=== PATIENT | male | born 1985 | race Caucasian/White ===

== ENCOUNTER 2018-08-17 09:07 | Emergency (ER) | payer SELFPAY ==
--- NOTE | 2018-08-17 09:19 | W.ED.GENAD ---
Discharge Plan Disposition Patient Disposition: HOME Condition: Stable Discharge Details Chief Complaint: FlankPain Clinical Impression: UTI (urinary tract infection), Acute pyelonephritis Primary Care Provider: None,None ED Provider: Chiara Larry Home Meds and New Rx's Prescriptions: New cephalexin [Keflex] 500 mg capsule 500 mg PO QID Qty: 28 RF: 0 doxycycline hyclate 100 mg capsule 100 mg PO BID Qty: 20 RF: 0 ondansetron 4 mg tablet,disintegrating 4 mg PO TID PRN (Reason: nausea and vomiting) 0 Days Qty: 10 RF: 0 No Action ibuprofen 800 MG tablet 800 mg PO PRN RF: 0 Discharge Instructions Instructions: Urinary Tract Infection in Men (ED) Additional Instructions: Encourage hydration. Tylenol and/or ibuprofen as needed for discomfort. Please take doxycycline and Keflex as prescribed. Even if symptoms improve, please see the entire course. Zofran is prescribed to help with nausea and vomiting. You need to have follow-up with a primary care provider for recheck in the next 48-72 hours. [facility] will call you. If you do not hear from them by tomorrow morning please call [phone]. If you develop fever/chills, increased pain, inability to stay hydrated or other new/worsening symptoms please seek care urgently once again. Referrals: David Pizano [ [facility] STAFF PHYSICIAN] - Discharge Data Discharge Date/Time-TO BE ENTERED AT DEPARTURE: 08/17/18 12:52 Medical Decision Making Patient is a 33-year-old male presenting today with chief complaint of nausea, vomiting and diarrhea times 1 week. States he has had minimal p.o. intake secondary to nausea and vomiting. Reports that initially he was having intermittent dysurea with bilateral flank pain. Pain is now more diffuse about the abdomen, worse in the LLQ. States that the diarrhea has since subsided. States that he has noted a white filmy penile discharge intermittently. denies any new sexual contacts. No known exposures to STI. Has had minimal PO intake secondary to his nausea and vomiting. Denies fevers but states that, particualrly when nauseated, has felt warm. No previous abdominal surgeries. Otherwise healthy, family history of DM. VS WNL. On exam, he appears dehydrated. Endorses discomfort with palpation fairly diffusely, worse in the epigastric and LLQ. No peritoneal findings. Mild bilateral CVA tenderness on exam. Patient is a mild discomfort with palpation of the testicle cremasteric reflex is intact, no swelling or deformities noted. Patient does not have PCP. Plan to obtain labs, hydrate the patient, treat nausea. Will obtain CT of abdomen and pelvis as well as ultrasound of the scrotum. CT reviewed by radiologist: ABDOMEN AND PELVIS CT: The study was carried out with intravenous injection of 100 cc's of Omnipaque 350. Aside from small regions of dependent atelectasis. The lung bases are unremarkable. There is no evidence of a pleural effusion. The heart is not enlarged. The liver is intact. The gallbladder is normal. There are no gallstones or evidence of biliary dilatation. The pancreas, spleen, kidneys and adrenals appear unremarkable. There is no evidence of bowel obstruction. There is no evidence of an acute appendix. There is no evidence of diverticulosis or diverticulitis and no localized bowel abnormality is apparent. The bladder is suboptimally distended and there is some question regarding bladder wall thickening. The possibility of cystitis not entirely excluded. The reproductive organs as visualized are unremarkable. There is no evidence of free air or free fluid in the intraperitoneal space. There is no evidence of an aortic aneurysm. The bony structures are unremarkable. SUMMARY: Normal with contrast enhanced CT examination of the abdomen and pelvis. Scrotal ultrasound reviewed by the gear technician with no acute abnormalities noted. Ultrasound reviewed by radiologist: TESTICULAR ULTRASOUND: The right testicle measures 3.9 x 2.0 x 3.6 cm and is acoustically homogeneous. There is no evidence of a cyst, mass or torsion. The right epididymis measures 0.8 x 1.2 x 0.9 cm and is unremarkable. The left testicle measures 3.9 x 2.2 x 3.8 cm and is acoustically homogeneous with no evidence of a cyst or mass. The left epididymis measures 1 x 0.8 x 0.8 cm. SUMMARY: Normal testicular ultrasound. Labs significant for potassium 3.3, will replenish this orally. Urinalysis also suggestive of urinary tract infection. Again, the patient denies any STD exposure. He denies any anal sex. He reports that he has been in a monogamous relationship since his last STD testing. Discussed these findings with the patient. We discussed his history once again the patient is now advising that the nausea and vomiting only began yesterday. He is tolerating p.o. hydration at this time. I am concerned this is a result of his worsening urinary tract infection. Discussed the case with Dr. De La Garza. We discussed antibiotic choice and have decided give the patient 1 g of Rocephin followed by 10-day course of doxycycline and a course of Keflex. Patient does not have a primary care but I would like him to have prompt follow-up. I have asked her home care music therapist to help establish primary care and follow-up as soon as possible. He was given strict return precautions. I advised the use of probiotics. All of his questions and concerns were addressed he is in agreement this plan. Patient was prescribed Zofran to help with nausea and vomiting. HPI General Mode of arrival: ambulatory. Date/Time Provider Initiated Documentation: 08/17/18 09:12. Limitations to Documentation: no limitations. Information obtained by: patient. History of Present Illness 33 year old M presents to the emergency department with the chief complaint of N/V/D, described as moderate, with intensity rated at 5. Quality is described as aching, and is localized to the abdomen (diffuse discomfort, worse in the LLQ, pain improving). Patient reports no radiation. Patient started experiencing this day(s) (7) and it has been intermittent. No relieving factors improve symptom(s), Eating worsens symptoms . Patient notes fever/chills (endorses feeling warm, no known fevers), loss of appetite, nausea/vomiting and weakness (endorses fatigue, states abdominal upset has made difficult to sleep); denies chest pain, cough, diaphoresis, headaches, rash and shortness of breath. Patient did receive the following treatments prior to arrival, none Related Data Home Medications Medication Instructions Recorded Confirmed ibuprofen 800 mg PO PRN 08/27/13 08/17/18 cephalexin [Keflex] 500 mg PO QID #28 cap 08/17/18 doxycycline hyclate 100 mg PO BID #20 cap 08/17/18 ondansetron 4 mg PO TID PRN 0 Days #10 tab 08/17/18 Previous Rx's Medication Instructions Recorded cephalexin [Keflex] 500 mg PO QID #28 cap 08/17/18 doxycycline hyclate 100 mg PO BID #20 cap 08/17/18 ondansetron 4 mg PO TID PRN 0 Days #10 tab 08/17/18 Allergies Allergy/AdvReac Type Severity Reaction Status Date / Time No Known Allergies Allergy Unverified 08/17/18 10:08 Review of Systems Constitutional Reports as per HPI, Denies chills, Reports fatigue, Denies fever(s) and Denies headache(s) ENT Denies headache(s) Cardiovascular Reports as per HPI, Denies chest pain and Denies dyspnea Respiratory Reports as per HPI, Denies cough and Denies dyspnea Gastrointestinal Reports as per HPI, Reports abdominal pain, Denies melena, Reports change in bowel habits (states initially had diarrhea, this has since improved), Denies cramping, Denies heartburn, Denies fecal incontinence, Reports nausea, Reports vomiting and Denies hematemesis Genitourinary Reports genital pain, Reports dysuria, Reports flank pain, Reports penile discharge, Denies scrotal swelling, Denies testicular mass, Reports testicular pain, Reports urinary frequency, Denies urinary incontinence and Denies urinary urgency Musculoskeletal Reports as per HPI and Denies back pain Integumentary/Breasts Reports as per HPI and Denies rash Neurologic Reports as per HPI and Denies headache(s) Endocrine Reports fatigue and Denies polydipsia [facility] Social History Smoking/Tobacco Use Status: Current every day Drug use: Never Do you feel safe at home: Yes Do you feel safe in your relationship?: Yes Exam Const General: cooperative, healthy appearing, comfortable, no acute distress, well developed and No well hydrated Nutritional Appearance: average body habitus and well nourished Orientation: alert and awake [facility] Head: normal to inspection Mouth: mucous membranes dry Resp Effort & Inspection: normal respiratory effort, able to speak in complete sentences and no respiratory distress Auscultation: clear to auscultation bilaterally, no rales, no rhonchi and no wheezes Cardio Rate: regular rate Rhythm: regular rhythm Heart Sounds: S1 normal and S2 normal GI Inspection: normal to inspection, no abdominal wall ecchymosis, no edema and non-distended Palpation: soft, no hepatosplenomegaly, no aortic enlargement, not firm, no guarding, not rigid and tender (diffusely tender, no peritoneal findings. Worse in epigastric and LLQ) Percussion: normal to percussion Auscultation: normal bowel sounds Male General Exam: Yes normal external exam, No ecchymosis, No edema, No erythema, No hernia, No inguinal lymphadenopathy and No lacerations Penis: normal penis Meatus: meatus normal and no meatla discharge Scrotum: scrotum normal Testes: normal Back/Spine/Pelvis Back: CVA tenderness (bilateral, mild) Skin General skin exam: no rashes or lesions noted Trauma: no lacerations or abrasions Neuro General: alert and awake Cognition: normal cognition Speech: speech normal Gait: normal gait Psych Appearance: grossly normal and well kempt Mental Status: mental status grossly normal Speech and Movement: speech and movement normal
--- NOTE | 2018-08-17 09:29 | DI.COMBO_ITS ---
SYMPTOMS/DIAGNOSIS: LLQ PAIN, NAUSEA, VOMITING ABDOMEN AND PELVIS CT: The study was carried out with intravenous injection of 100 cc's of Omnipaque 350. Aside from small regions of dependent atelectasis. The lung bases are unremarkable. There is no evidence of a pleural effusion. The heart is not enlarged. The liver is intact. The gallbladder is normal. There are no gallstones or evidence of biliary dilatation. The pancreas, spleen, kidneys and adrenals appear unremarkable. There is no evidence of bowel obstruction. There is no evidence of an acute appendix. There is no evidence of diverticulosis or diverticulitis and no localized bowel abnormality is apparent. The bladder is suboptimally distended and there is some question regarding bladder wall thickening. The possibility of cystitis not entirely excluded. The reproductive organs as visualized are unremarkable. There is no evidence of free air or free fluid in the intraperitoneal space. There is no evidence of an aortic aneurysm. The bony structures are unremarkable. SUMMARY: Normal with contrast enhanced CT examination of the abdomen and pelvis.
[2018-08-17 09:48] LABS: Abs Immature Grans 0.04 k/cumm (0.0-0.09); Absolute Basophil Count 0.03 k/cumm (0.0-0.2); Absolute Eosinophil Count 0.05 k/cumm (0.0-0.7); Absolute Monocyte Count 0.71 k/cumm (0.11-0.7); Absolute Neutrophil Count 8.56 k/cumm (1.2-6.7); Basophils % 0.3; Eosinophils % 0.4; HCT 41.4 % (40.0-50.0); HGB 14.5 g/dL (13.5-17.5); Immature Grans % 0.4; Mean Corpuscular Hemoglobin 30.1 pg (27.0-33.0); Mean Corpuscular Volume 85.9 fL (80-95); Mean Platelet Volume 10.7 fL (8.0-11.0); Monocytes % 6.3; Neutrophils % 75.6; Platelet Count 316 x1000/uL (130-400); RBC 4.82 m/cumm (4.50-6.00); RBC Distribution Width 12.3 % (11.8-14.1); White Blood Cell Count 11.32 k/cumm (4.4-10.8)
[2018-08-17] MEDS: Normal Saline 1,000 ML 1000 ML IV (09:50)
[2018-08-17 09:51] LABS: Absolute Lymphocyte Count 1.92 k/cumm (1.2-3.4)
[2018-08-17 10:00] LABS: ALT 26 U/L (12-78); AST 13 U/L (15-37); Albumin 4.3 g/dL (3.4-5.0); Alkaline Phosphatase 77 U/L (46-116); Anion Gap 12.3 mmol/L (3-11); BUN 10 mg/dL (7-18); Bilirubin, Total 0.8 mg/dL (0.2-1.0); CO2 26.7 mmol/L (21.0-32.0); CREATININE 0.96 mg/dL (0.70-1.30); Calcium 9.4 mg/dL (8.5-10.1); Chloride 100 mmol/L (98-107); Glucose 125 mg/dL (70-100); Potassium 3.3 mmol/L (3.5-5.1); Sodium 139 mmol/L (136-145); Total Protein 7.7 g/dL (6.4-8.2)
[2018-08-17] MEDS: Ondansetron 4 MG/2 ML VIAL IVP (10:00)
[2018-08-17 10:03] VITALS: BP 120/89; PULSE 61; RESP 12; TEMP 37.1; O2SAT 100
[2018-08-17 10:09] LABS: Lipase 147 U/L (73-393); Magnesium 1.8 mg/dL (1.8-2.4)
[2018-08-17 10:11] LABS: Troponin I < 0.02 ng/mL (0.00-0.06)
[2018-08-17] MEDS: Lactated Ringers 1,000 ML 1000 ML IV (10:34)
[2018-08-17 10:44] LABS: Bilirubin Negative (Negative); Blood Negative (Negative); Clarity Clear; Glucose Negative (Negative); Ketones Negative (Negative); Leukocyte Esterase Trace (Negative); Nitrite Negative (Negative); Specific Gravity 1.015 (1.005-1.025); Urobilinogen 0.2 EU/dL (Up TO 0.2)
[2018-08-17 10:57] LABS: Bacteria Few HPF (Negative); C & S Indicated? Yes; Casts Negative LPF (Negative); Crystals Negative HPF (Negative); Epithelial Cells Rare HPF (Negative); Mucus Negative (Negative); Other Cells Few Renal (Negative); RBC Negative (0-2); WBC >50 HPF (0-5)
[2018-08-17] MEDS: Omnipaque 350 MG/ML 100 ML BTL IV (11:05)
[2018-08-17] MEDS: Potassium Chloride 20 MEQ TABCR PO (11:09)
--- NOTE | 2018-08-17 11:34 | DI.US_ITS ---
SYMPTOMS/DIAGNOSIS: SCROTAL PAIN TESTICULAR ULTRASOUND: The right testicle measures 3.9 x 2.0 x 3.6 cm and is acoustically homogeneous. There is no evidence of a cyst, mass or torsion. The right epididymis measures 0.8 x 1.2 x 0.9 cm and is unremarkable. The left testicle measures 3.9 x 2.2 x 3.8 cm and is acoustically homogeneous with no evidence of a cyst or mass. The left epididymis measures 1 x 0.8 x 0.8 cm. SUMMARY: Normal testicular ultrasound.
[2018-08-17] MEDS: Normal Saline Flush 10 ML SYR IVP (12:20)
[2018-08-17] MEDS: Doxycycline Hyclate 100 MG CAP PO (12:21)
[2018-08-17] MEDS: cefTRIAXone 1 GM/50 ML BAG IVPB (12:21)
--- NOTE | 2018-08-17 13:04 | PDOC.ERCMPRO ---
Care Management Progress Note 08/17-Chiara SARABIA requested assistance with PCP (does not have a PCP, Dr. Pizano alterations expert) f/u appt for pyelonephritis on Wednesday or Wednesday. Called [facility] and spoke with Natasha,Chronic Substation Operator Apprentice. Natasha has scheduled Bala for Wednesday, 08/22 at 1:[address] Franco. This CM called Bala as he had already been discharged from the emergency department. Bala states he can make the appt on Wednesday.
--- NOTE | 2018-08-17 13:07 | CMPROGNOTE_ITS ---
Care Management Progress Note 08/17-Chiara SARABIA requested assistance with PCP (does not have a PCP, Dr. Pizano conveyor line battery charger) f/u appt for pyelonephritis on Wednesday or Wednesday. Called [facility] and spoke with Natasha,Chronic Specialist Field Engineer. Natasha has scheduled Bala for Wednesday, 08/22 at 1:[address] Franco. This CM called Bala as he had already been discharged from the emergency department. Bala states he can make the appt on Wednesday.
[2018-08-18 15:04] LABS: Chlamydia Result Negative; Specimen Description URINE
[2018-08-18 15:59] LABS: GC Result Positive
== END 2018-08-17 12:52 | disposition home or self-care (01) ==
PROVIDERS: Emergency Provider Physician Assistant
DX: N39.0 Urinary tract infection, site not specified (principal); N10 Acute pyelonephritis
CPT/HCPCS: 36415; 80053; 83690; 87491; 87591; 96361; 96365; 96375; 99285; 74177; 76870; 81003; 81015; 83735; 84484; 85025; 87086; 99284; J0696; J2405; J3490

== ENCOUNTER 2021-10-21 16:10 | Emergency (ER) | payer MEDICAID, SELFPAY ==
[2021-10-21 16:21] VITALS: BP 135/98; PULSE 81; RESP 18; TEMP 37.9; O2SAT 98
--- NOTE | 2021-10-21 16:30 | DI.RAD_ITS ---
Exam(s) XR FOOT RT COMPLETE EXAM: XR FOOT RT COMPLETE CLINICAL HISTORY: injury to foot -base of 5th metatarsal. TECHNIQUE: 2D digital imaging was performed. Three views. COMPARISON: CR RIGHT FOOT COMPLETE from 03/09/2017 FINDINGS: BONES: No acute fracture is present. No bony destructive lesion is seen. JOINTS: No dislocation present. Degenerative changes with spurring at the navicular 1st cuneiform cristy int. Mild degenerative changes 1st MTP joint. SOFT TISSUE: Normal. IMPRESSION: No acute abnormality. DATA REPOSITORY: RADIATION DOSE DELIVERED:
--- NOTE | 2021-10-21 17:49 | ED.GENADUL_ITS ---
Discharge Plan Disposition Patient Disposition: HOME Condition: Stable Discharge Details Clinical Impression: Acute foot pain Primary Care Provider: None,None ED Provider: Hector Moon Home Meds and New Rx's Prescriptions: No Action ibuprofen 800 MG tablet 800 mg PO PRN cephalexin [Keflex] 500 mg capsule 500 mg PO QID Qty: 28 0RF doxycycline hyclate 100 mg capsule 100 mg PO BID Qty: 20 0RF Discharge Instructions Instructions: Foot Sprain (ED) Additional Instructions: It is recommended that you wear the walking boot for the next 1 to 2 weeks and if continued to have pain wear this until you see orthopedics. You may take [id number] ibuprofen or acetaminophen as needed for discomfort, apply ice to help with swelling, and keep foot elevated. If you have any new or significant worsening of symptoms feel free to return to the emergency department for evaluation otherwise follow-up with orthopedist as discussed. Referrals: [facility] [Provider Group] Discharge Data Discharge Date/Time-TO BE ENTERED AT DEPARTURE: 10/21/21 17:58 Medical Decision Making Patient presenting to the emergency department for chief complaint of fall off of the deck landing on the lateral aspect of the right foot. Patient complaining of pain to the base of the fifth metatarsal otherwise no other injury or trauma. Physical exam does show pinpoint tenderness to base of fifth metatarsal otherwise foot and ankle and lower leg are unremarkable for other signs of trauma or injury. We will plan on performing radiological imaging to evaluate for Nicholson or pseudo Nicholson fracture. Patient stated no need for pain medication at this time. Review of radiological imaging and radiologist interpretation shows no acute fracture or dislocation. Given location of discomfort will place patient in a short walking boot to help with pain control and have patient follow-up with orthopedic office in the next 1 to 2 weeks for reassessment mainly due to pinpoint location of discomfort. After discussion of diagnosis and plan of care patient has no further needs, questions, or concerns and states clear understanding to return to the emergency department for any worsening symptoms. This documentation was generated using [employer] system, please disregard any oddities of phrase or misspellings. Imaging Data Radiologic Study: Imaging: X-Ray Radiologist's impression: No acute fracture or dislocation HPI General Date/Time Provider Initiated Documentation: 10/21/21 16:30 . Limitations to Documentation: no limitations . Information obtained by: patient and RN notes reviewed . History of Present Illness 36 year old M presents to the emergency department with the chief comp laint of right ankle/foot injury, described as moderate, with intensity rated at 6. Quality is described as aching, and is localized to the right and lower extremity. Patient reports no radiation. Patient started experiencing this hour(s) (1) and it has been constant. No relieving factors improve symptom(s), Movement worsens symptoms . Patient notes no other symptoms.. Patient did receive the following treatments prior to arrival, none Related Data Home Medications Medication Instructions Recorded Confirmed ibuprofen 800 mg tablet 800 mg PO PRN 08/27/13 08/22/18 cephalexin 500 mg capsule (Keflex) 500 mg PO QID #28 caps 08/17/18 08/22/18 doxycycline hyclate 100 mg capsule 100 mg PO BID #20 caps 08/17/18 08/22/18 Previous Rx's Medication Instructions Recorded cephalexin 500 mg capsule (Keflex) 500 mg PO QID #28 caps 08/17/18 doxycycline hyclate 100 mg capsule 100 mg PO BID #20 caps 08/17/18 Allergies Allergy/AdvReac Type Severity Reaction Status Date / Time No Known Allergies Allergy Unverified 08/22/18 13:17 General Stated Complaint: Orthopedic MANSI: 4 Review of Systems Narrative: 6 systems reviewed and unremarkable except what is marked below and noted in HPI Musculoskeletal Musculoskeletal: Reports as per HPI, Denies deformity, Denies numbness and Denies tingling Integumentary/Breasts Skin/Breast: Denies wounds Neurologic Neurologic: Denies numbness and Denies tingling PFSH All Active Problems (Updated 10/21/21 @ 17:55 by Hector Moon NP) Acute foot pain (Acute) Social History Smoking/Tobacco Use Status: Current every day Tobacco Type: cigarettes Smoking risk assessment performed?: Yes Alcohol Intake: current Alcohol Intake frequency: 3 or more drinks per day Alcohol type: beer Drug use: Never Substance use type: does not use Do you feel safe at home: Yes Do you feel safe in your relationship?: Yes Exam Const General: cooperative, no acute distress and not ill appearing Orientation: alert, awake and oriented x3 Resp Effort & Inspection: normal respiratory effort, able to speak in complete sentences and no respiratory distress Cardio Rate: regular rate Rhythm: regular rhythm Pulses: dorsalis pedis present Skin General skin exam: no rashes or lesions noted Neuro General: patient alert, patient awake, patient oriented x3, moves all extremities and no focal motor deficits Sensory Exam: no sensory deficits noted Extrem General: full ROM, capillary refill normal and normal exam except as noted Right lower extremity: ankle Details: normal to inspection and normal ROM; no tenderness and foot Details: normal capillary refill, tenderness Location: of the base of the 5th metatarsal, toes with normal ROM, ecchymosis dorsal lateral proximal Details: single, vascular exam Details: dorsalis pedis pulse present and normal capillary refill and tendon exam Details: active flexion normal and active extension normal; no abrasion and no laceration Course Vital Signs Vital signs: Vital Signs Temperature 37.9 C H 10/21/21 16:21 Pulse 81 10/21/21 16:21 Respiratory Rate 18 10/21/21 16:21 Blood Pressure 135/98 H 10/21/21 16:21 Pulse Oximetry 98 10/21/21 16:21 Temperature 37.9 C H 10/21/21 16:21 Temperature Source Tympanic 10/21/21 16:21 Pulse 81 10/21/21 16:21 Respiratory Rate 18 10/21/21 16:21 Respiratory Effort 10/21/21 16:24 Blood Pressure 135/98 H 10/21/21 16:21 Blood Pressure Position Supine 10/21/21 16:21 Pulse Oximetry 98 10/21/21 16:21 Oxygen Delivery Method Room Air 10/21/21 16:21 Oxygen Flow Rate 0 10/21/21 16:21 Pain Level 6 10/21/21 16:21
== END 2021-10-21 17:58 | disposition home or self-care (01) ==
PROVIDERS: Emergency Provider Nurse Practitioner Family
DX: M79.671 Pain in right foot (principal); W17.89XA Other fall from one level to another, initial encounter
CPT/HCPCS: 99283; 73630

== ENCOUNTER 2022-09-30 11:26 | Emergency (ER) | payer MEDICAID, SELFPAY ==
[2022-09-30 11:51] VITALS: PULSE 89; RESP 18; TEMP 36.7; O2SAT 99
[2022-09-30 11:53] VITALS: BP 110/90
--- NOTE | 2022-09-30 13:11 | W.ED.GENAD ---
Discharge Plan Disposition Patient Disposition: Home Condition: Stable Discharge Details Clinical Impression: Sprain of right shoulder Primary Care Provider: None,None ED Provider: Ariane Bustillo Home Meds and New Rx's Prescriptions: No Action ibuprofen 800 MG tablet 800 mg PO PRN cephalexin [Keflex] 500 mg capsule 500 mg PO QID Qty: 28 0RF Patient Comments: not taking doxycycline hyclate 100 mg capsule 100 mg PO BID Qty: 20 0RF Patient Comments: not taking Discharge Instructions Instructions: Shoulder Sprain (ED) Additional Instructions: Please follow-up with orthopedics. No evidence of broken bones or dislocation on the x-rays. Please take Tylenol or Ibuprofen with food every 4-6 hours as needed for pain and swelling. Rest ice compression elevation. Stand Alone Forms: Work Release Referrals: Gunnar Watson MD [ [facility] STAFF PHYSICIAN] - 1 week Medical Decision Making 37-year-old male presents to the ER with chief complaint of right shoulder pain and popping. He reports feeling popping while raising his right shoulder. He is unable to lift it above 90 degrees. No obvious dislocation, distal CMS is intact. No other associated symptoms. X-ray right shoulder ordered. X-rays are within normal limits. Patient given work note and instructions on follow-up verbalized understanding. Instructed on RICE procedures taking Tylenol and ibuprofen. This text was generated using [employer] dictation system, please disregard any oddities of phrase or misspellings. HPI General Mode of arrival: ambulatory. Date/Time Provider Initiated Documentation: 09/30/22 12:17. Limitations to Documentation: no limitations. Information obtained by: patient, RN notes reviewed and old records reviewed. HPI Narrative: 37-year-old male presents to the ER with chief complaint of right shoulder pain and popping. He reports feeling popping while raising his right shoulder. He is unable to lift it above 90 degrees. No obvious dislocation, distal CMS is intact. No other associated symptoms. Related Data Home Medications Medication Instructions Recorded Confirmed ibuprofen 800 mg tablet 800 mg PO PRN 08/27/13 09/30/22 cephalexin 500 mg capsule (Keflex) 500 mg PO QID #28 caps 08/17/18 08/22/18 doxycycline hyclate 100 mg capsule 100 mg PO BID #20 caps 08/17/18 08/22/18 Previous Rx's Medication Instructions Recorded cephalexin 500 mg capsule (Keflex) 500 mg PO QID #28 caps 08/17/18 doxycycline hyclate 100 mg capsule 100 mg PO BID #20 caps 08/17/18 Allergies Allergy/AdvReac Type Severity Reaction Status Date / Time No Known Allergies Allergy Unverified 09/30/22 11:53 General Stated Complaint: Orthopedic MANSI: 4 Review of Systems Musculoskeletal Musculoskeletal: Reports as per HPI and Reports arthralgias PFSH All Active Problems (Updated 09/30/22 @ 14:00 by Ariane Bustillo NP) Sprain of right shoulder (Acute) Social History Smoking/Tobacco Use Status: Current every day Tobacco Type: cigarettes Smoking risk assessment performed?: Yes Alcohol Intake: current Alcohol Intake frequency: 3 or more drinks per day Alcohol type: beer Drug use: Never Substance use type: does not use Do you feel safe at home: Yes Do you feel safe in your relationship?: Yes Exam Narrative Exam Narrative: Constitutional: Alert and oriented x3. Appears stated age. Normal body habitus. Head: Normocephalic, no trauma. Eyes: Pupils PERRL, Red reflex noted, EOM's intact. Eyelids symmetrical without lesions, discharge, or swelling. Abdomen: Soft, non-distended, Normoactive bowel sounds all 4 quads. Musculoskeletal: Normal gait, 5/5 strength to all four extremities. Decreased range of motion to his right shoulder, unable to move past 90 degrees. Skin: No suspicious rashes or lesions. Capillary refill less than 2 sec. Neurologic: Cranial nerves II-XII intact. Alert and oriented x 3. Motor: No deficits noted. Sensory: Intact bilaterally all 4 extremities. Reflexes: DTR's intact bilaterally.. Course Vital Signs Vital signs: Vital Signs Temperature 36.7 C 09/30/22 11:51 Pulse 89 09/30/22 11:51 Respiratory Rate 18 09/30/22 11:51 Pulse Oximetry 99 09/30/22 11:51 Temperature 36.7 C 09/30/22 11:51 Temperature Source Tympanic 09/30/22 11:51 Pulse 89 09/30/22 11:51 Respiratory Rate 18 09/30/22 11:51 Respiratory Effort Normal, Non-Labored 09/30/22 11:52 Blood Pressure 110/90 09/30/22 11:53 Pulse Oximetry 99 09/30/22 11:51 Oxygen Delivery Method Room Air 09/30/22 11:51 Oxygen Flow Rate 0 09/30/22 11:51 PAWSS Have you Been Recently Intoxicated or Drunk Within the Last 30 days?: No Have you Ever Experienced Previous Episodes of Alcohol Withdrawal?: No Have you ever Experienced Withdrawal Seizures?: No Have you ever Experienced Delirium Tremens(DT)s?: No Have you ever undergone Alcohol Rehabilitation Treatment (i.e, inpt ot outpatient treatment programs)?: No Have you ever Experienced Blackouts?: No Have you ever Combined Alcohol with other Downers within the last 90 days?: No Have you ever Combined Alcohol with any other Substance of Abuse during the last 90 days?: No Positive Blood Alcohol level on Presentation? [PCS.BAL]: No Evidence of Increased Autonomic Activity (i.e. HR>120, tremor, sweating, agitation, nausea)?: No Result: 0
--- NOTE | 2022-09-30 13:43 | DI.RAD_ITS ---
Exam(s) XR SHOULDER RT COMPLETE 2+V EXAM: XR SHOULDER RT COMPLETE 2+V CLINICAL HISTORY: Shoulder pain. TECHNIQUE: 2D digital imaging was performed. Five views. COMPARISON: No exams were available for comparison FINDINGS: BONES: No acute fracture is present. No bony destructive lesion is seen. JOINTS: No dislocation present. SOFT TISSUE: Normal. IMPRESSION: Unremarkable radiographs of the right shoulder. DATA REPOSITORY: RADIATION DOSE DELIVERED:
[2022-09-30 14:06] VITALS: PULSE 78; RESP 18; O2SAT 94
== END 2022-09-30 14:07 | disposition home or self-care (01) ==
PROVIDERS: Emergency Provider Registered Nurse Emergency
DX: S43.401A Unspecified sprain of right shoulder joint, initial encounter (principal); X50.0XXA Overexertion from strenuous movement or load, initial encounter; Y99.0 Civilian activity done for income or pay
CPT/HCPCS: 99283; 73030

== ENCOUNTER 2022-12-31 02:04 | Inpatient (IN) | payer MEDICAID, SELFPAY ==
[2022-12-31] VITALS (15 sets, daily range): BP systolic 111–124; BP diastolic 71–96; PULSE 51–114; RESP 14–18; TEMP 36.3–37.4; O2SAT 97–100
--- NOTE | 2022-12-31 | DI.CT_ITS ---
Exam(s) CT UPPER EXTREMITY LT W EXAM: CT UPPER EXTREMITY LT W CLINICAL HISTORY: CT L hand - L hand cellulitis and abscess TECHNIQUE: Imaging Protocol: Axial computed tomography images with coronal and sagittal reformatted images were created and reviewed. CONTRAST MATERIAL: Intravenous: Omnipaque 350 Contrast volume:structured data in ml Contrast route:I V - COMPARISON: There are no plain films available time of this CT interpretation. FINDINGS: OSSEOUS: No evidence of fracture nor dislocation. No osseous lesions nor erosions. No evidence of o steomyelitis. SOFT TISSUES: There is subcutaneous edema both over the dorsal and palm are aspect of the medial hand . There is no radiopaque foreign body evident. There is no formed abscess. No obvious tenosynoviti s. IMPRESSION: Contain is soft tissue streaking but no distinct fluid collection to suggest the presence of an obvio us abscess. No evidence of osteomyelitis. RADIATION DOSE DELIVERED: 181.79mGy.cm Total DLP DATA REPOSITORY: All CT scans at this facility are submitted to the National Radiology Data Registry (NRDR) Dose Index Registry (DIR) with the [employer] (A[employer]). RADIATION OPTIMIZATION: All CT scans at this facility use at least one of these dose optimization te chniques: automated exposure control; mA and/or kV adjustment per patient size (includes targeted exa ms where dose is matched to clinical indication); or iterative reconstruction.
[2022-12-31 02:59] LABS: Lactate 1.1 mmol/L (0.6-1.4)
[2022-12-31] MEDS: ACETAMINOPHEN 1,000 MG/100 ML BTL 400 MG IVPB (03:12)
[2022-12-31] MEDS: Ketorolac 15 MG/ML VIAL IVP ×2 (03:13→22:48)
[2022-12-31] MEDS: Lactated Ringers 1,000 ML 1000 ML IV (03:13)
[2022-12-31 03:18] LABS: ALT 6 U/L (16-63); AST 13 U/L (15-37); Albumin 3.7 g/dL (3.4-5.0); Alkaline Phosphatase 73 U/L (46-116); Anion Gap 7.9 mmol/L (3-11); BUN 6 mg/dL (7-18); Bilirubin, Total 0.3 mg/dL (0.2-1.0); C-Reactive Protein 4.36 mg/dL (0.0-0.3); CO2 30.1 mmol/L (21.0-32.0); CREATININE 1.2 mg/dL (0.70-1.30); Calcium 9.5 mg/dL (8.5-10.1); Chloride 104 mmol/L (98-107); Estimated GFR 80.88 (mL/min/1.73m2); Glucose 78 mg/dL (74-106); Potassium 4.1 mmol/L (3.5-5.1); Sodium 142 mmol/L (136-145); Total Protein 7.4 g/dL (6.4-8.2)
[2022-12-31 03:21] LABS: Abs Immature Grans 0.09 10^3/uL (0.0-0.06); Absolute Eosinophil Count 0.19 10^3/uL (0.0-0.7); Absolute Lymphocyte Count 2.01 10^3/uL (1.2-3.4); Absolute Monocyte Count 1.07 10^3/uL (0.1-0.8); Absolute Neutrophil Count 12.76 10^3/uL (1.2-6.7); Basophils % 0.6; Eosinophils % 1.2; HCT 41.8 % (40.0-50.0); HGB 14.4 g/dL (13.5-17.5); Immature Grans % 0.6; Lymphocytes % 12.4; MCH 32.1 pg (27.0-33.0); MCHC 34.4 % (32.0-36.0); MCV 93 fL (80-95); MPV 10.2 fL (8.0-11.0); Monocytes % 6.6; Neutrophils % 78.6; Platelet Count 362 10^3/uL (130-400); RBC 4.49 10^6/uL (4.36-5.78); RDW 12.3 % (11.8-14.1); RDW-SD 42.7 fL; WBC 16.24 10^3/uL (4.4-10.8)
[2022-12-31 03:22] LABS: ESR 6 mm/hr (0-15)
--- NOTE | 2022-12-31 03:44 | ED.GENADUL_ITS ---
Discharge Plan Disposition Patient Disposition: Admit to [facility] Discharge Details Chief Complaint: Cellulitis Clinical Impression: Sepsis, Cellulitis Primary Care Provider: Unknown,Unknown ED Provider: Shanice Newberry Home Meds and New Rx's Prescriptions: No Action ibuprofen 800 MG tablet 800 mg PO PRN Medical Decision Making 37yo previously jessica male presenting with insect bite to left hand. Noted pain and redness at the base of his left 4th digit this afternoon which has been progressively worsening. Tachycardiac on arrival, normotensive, afebrile. Cellulits on hand with extending erythema in lymphatic pattern up the arm. Will treat empirically for MRSA with IV clindamycin. IVFB ordered, blood cultures sent. No pain with passive extension on exam, no significant swelling of digit, not concerned for flexor tenosynovitis or deep space infection at this time. Labs reviewed as below, elevated WBC to 16; SIRS +, will treat for sepsis, give 2nd L of IVF. CMP reassuring, lactic normal, CRP elevated. On reassessment vital signs improving, HR in 80's. Discussed with Dr. Rodriguez and accepted to medicine service, awaiting transfer to the floor. Lab Data Lab results reviewed: Yes I reviewed the patient's lab results. Labs: 12/31/22 02:56 Blood Blood Culture - Pending 12/31/22 02:47 Blood Blood Culture - Pending Laboratory Tests Range/Units 12/31/22 12/31/22 12/31/22 02:47 02:47 02:47 WBC (4.4-10.8) 10^3/uL RBC (4.36-5.78) 10^6/uL Hgb (13.5-17.5) g/dL Hct (40.0-50.0) % MCV (80-95) fL MCH (27.0-33.0) pg MCHC (32.0-36.0) % RDW (11.8-14.1) % Plt Count (130-400) 10^3/uL MPV (8.0-11.0) fL Immature Gran % Neutrophils % Lymphocytes % Monocytes % Eosinophils % Basophils % Nucleated RBC % (0.0-0.3) % Absolute Neutrophils (1.2-6.7) 10^3/uL Absolute Lymphocytes (1.2-3.4) 10^3/uL Absolute Monocytes (0.1-0.8) 10^3/uL Absolute Eosinophils (0.0-0.7) 10^3/uL Absolute Basophils (0.0-0.2) 10^3/uL ESR (0-15) mm/hr 6 VBG Lactate (0.6-1.4) mmol/L 1.1 Sodium (136-145) mmol/L 142 Potassium (3.5-5.1) mmol/L 4.1 Chloride (98-107) mmol/L 104 Carbon Dioxide (21.0-32.0) mmol/L 30.1 Anion Gap (3-11) mmol/L 7.9 BUN (7-18) mg/dL 6 L Creatinine (0.70-1.30) mg/dL 1.2 Est GFR (CKD-EPI 2020) (mL/min/1.73m2) 80.88 Glucose (74-106) mg/dL 78 Calcium (8.5-10.1) mg/dL 9.5 Magnesium (1.8-2.4) mg/dL 2.0 Total Bilirubin (0.2-1.0) mg/dL 0.3 AST (15-37) U/L 13 L ALT (16-63) U/L 6 L Alkaline Phosphatase (46-116) U/L 73 C-Reactive Protein (0.0-0.3) mg/dL 4.36 H Total Protein (6.4-8.2) g/dL 7.4 Albumin (3.4-5.0) g/dL 3.7 Range/Units 12/31/22 02:47 WBC (4.4-10.8) 10^3/uL 16.24 H RBC (4.36-5.78) 10^6/uL 4.49 Hgb (13.5-17.5) g/dL 14.4 Hct (40.0-50.0) % 41.8 MCV (80-95) fL 93 MCH (27.0-33.0) pg 32.1 MCHC (32.0-36.0) % 34.4 RDW (11.8-14.1) % 12.3 Plt Count (130-400) 10^3/uL 362 MPV (8.0-11.0) fL 10.2 Immature Gran % 0.6 Neutrophils % 78.6 Lymphocytes % 12.4 Monocytes % 6.6 Eosinophils % 1.2 Basophils % 0.6 Nucleated RBC % (0.0-0.3) % 0.0 Absolute Neutrophils (1.2-6.7) 10^3/uL 12.76 H Absolute Lymphocytes (1.2-3.4) 10^3/uL 2.01 Absolute Monocytes (0.1-0.8) 10^3/uL 1.07 H Absolute Eosinophils (0.0-0.7) 10^3/uL 0.19 Absolute Basophils (0.0-0.2) 10^3/uL 0.10 ESR (0-15) mm/hr VBG Lactate (0.6-1.4) mmol/L Sodium (136-145) mmol/L Potassium (3.5-5.1) mmol/L Chloride (98-107) mmol/L Carbon Dioxide (21.0-32.0) mmol/L Anion Gap (3-11) mmol/L BUN (7-18) mg/dL Creatinine (0.70-1.30) mg/dL Est GFR (CKD-EPI 2020) (mL/min/1.73m2) Glucose (74-106) mg/dL Calcium (8.5-10.1) mg/dL Magnesium (1.8-2.4) mg/dL Total Bilirubin (0.2-1.0) mg/dL AST (15-37) U/L ALT (16-63) U/L Alkaline Phosphatase (46-116) U/L C-Reactive Protein (0.0-0.3) mg/dL Total Protein (6.4-8.2) g/dL Albumin (3.4-5.0) g/dL HPI General Mode of arrival: ambulatory . Date/Time Provider Initiated Documentation: 12/31/22 02:32 . Limitations to Documentation: no limitations . Information obtained by: patient . HPI Narrative: 37yo previously jessica male presenting with insect bite to left hand. Noted pain and redness at the base of his left 4th digit this afternoon which has been progressively worsening. Pain is severe, worsening, worse with using his hand, no other aggravating factors, no alleviating factors. He is otherwise in his usual state of health with no fevers, chills, rash, nausea, vomiting, abdominal pain, or other concerns. Denies any hx of IV drug use. Related Data Home Medications Medication Instructions Recorded Confirmed ibuprofen 800 mg tablet 800 mg PO PRN 08/27/13 12/31/22 Allergies Allergy/AdvReac Type Severity Reaction Status Date / Time No Known Allergies Allergy Unverified 12/31/22 02:10 General Stated Complaint: Cellulitis MANSI: 3 Review of Systems Narrative: see HPI PFSH All Active Problems (Updated 12/31/22 @ 04:37 by Shanice Newberry MD) Sepsis (Acute) Cellulitis (Acute) Social History Smoking/Tobacco Use Status: Current every day Tobacco Type: cigarettes Smoking risk assessment performed?: Yes Alcohol Intake: current Alcohol Intake frequency: 3 or more drinks per day Alcohol type: beer Drug use: Never Substance use type: does not use Do you feel safe at home: Yes Do you feel safe in your relationship?: Yes Exam Narrative Exam Narrative: General: Alert, in no acute distress. Head: Normocephalic, atraumatic Neck: Trachea midline, Neck supple. ENT: MMM. Cardiac: Tachycardiac, no murmurs appreciated Resp: No respiratory distress. CTAB. Abd: Soft, non-distended, nontender : No suprapubic tenderness. Extremities: No deformities. No peripheral edema. Left hand lesion to base of 4th digit, no drainage, tender and erythematous with streaking up arm. Pain with active flexion. No pain with passive extension. Neurologic: GCS 15. Moves all extremities freely against gravity Course Vital Signs Vital signs: Vital Signs Temperature 37.4 C 12/31/22 02:08 Pulse 114 H 12/31/22 02:08 Respiratory Rate 18 12/31/22 02:08 Blood Pressure 124/96 H 12/31/22 02:08 Pulse Oximetry 100 12/31/22 02:08 Temperature 37.4 C 12/31/22 02:08 Temperature Source Temporal Artery Scan 12/31/22 02:08 Pulse 114 H 12/31/22 02:08 Respiratory Rate 18 12/31/22 02:08 Respiratory Effort Normal, Non-Labored 12/31/22 02:11 Blood Pressure 124/96 H 12/31/22 02:08 Blood Pressure Position Sitting 12/31/22 02:08 Pulse Oximetry 100 12/31/22 02:08 Oxygen Delivery Method Room Air 12/31/22 02:08 Oxygen Flow Rate 0 12/31/22 02:08 Lab/Test Results Lab/Test Results: 12/31/22 02:56 Blood Blood Culture - Pending 12/31/22 02:47 Blood Blood Culture - Pending Laboratory Tests Range/Units 12/31/22 12/31/22 12/31/22 02:47 02:47 02:47 WBC (4.4-10.8) 10^3/uL RBC (4.36-5.78) 10^6/uL Hgb (13.5-17.5) g/dL Hct (40.0-50.0) % MCV (80-95) fL MCH (27.0-33.0) pg MCHC (32.0-36.0) % RDW (11.8-14.1) % Plt Count (130-400) 10^3/uL MPV (8.0-11.0) fL Immature Gran % Neutrophils % Lymphocytes % Monocytes % Eosinophils % Basophils % Nucleated RBC % (0.0-0.3) % Absolute Neutrophils (1.2-6.7) 10^3/uL Absolute Lymphocytes (1.2-3.4) 10^3/uL Absolute Monocytes (0.1-0.8) 10^3/uL Absolute Eosinophils (0.0-0.7) 10^3/uL Absolute Basophils (0.0-0.2) 10^3/uL ESR (0-15) mm/hr 6 VBG Lactate (0.6-1.4) mmol/L 1.1 Sodium (136-145) mmol/L 142 Potassium (3.5-5.1) mmol/L 4.1 Chloride (98-107) mmol/L 104 Carbon Dioxide (21.0-32.0) mmol/L 30.1 Anion Gap (3-11) mmol/L 7.9 BUN (7-18) mg/dL 6 L Creatinine (0.70-1.30) mg/dL 1.2 Est GFR (CKD-EPI 2020) (mL/min/1.73m2) 80.88 Glucose (74-106) mg/dL 78 Calcium (8.5-10.1) mg/dL 9.5 Magnesium (1.8-2.4) mg/dL 2.0 Total Bilirubin (0.2-1.0) mg/dL 0.3 AST (15-37) U/L 13 L ALT (16-63) U/L 6 L Alkaline Phosphatase (46-116) U/L 73 C-Reactive Protein (0.0-0.3) mg/dL 4.36 H Total Protein (6.4-8.2) g/dL 7.4 Albumin (3.4-5.0) g/dL 3.7 Range/Units 12/31/22 02:47 WBC (4.4-10.8) 10^3/uL 16.24 H RBC (4.36-5.78) 10^6/uL 4.49 Hgb (13.5-17.5) g/dL 14.4 Hct (40.0-50.0) % 41.8 MCV (80-95) fL 93 MCH (27.0-33.0) pg 32.1 MCHC (32.0-36.0) % 34.4 RDW (11.8-14.1) % 12.3 Plt Count (130-400) 10^3/uL 362 MPV (8.0-11.0) fL 10.2 Immature Gran % 0.6 Neutrophils % 78.6 Lymphocytes % 12.4 Monocytes % 6.6 Eosinophils % 1.2 Basophils % 0.6 Nucleated RBC % (0.0-0.3) % 0.0 Absolute Neutrophils (1.2-6.7) 10^3/uL 12.76 H Absolute Lymphocytes (1.2-3.4) 10^3/uL 2.01 Absolute Monocytes (0.1-0.8) 10^3/uL 1.07 H Absolute Eosinophils (0.0-0.7) 10^3/uL 0.19 Absolute Basophils (0.0-0.2) 10^3/uL 0.10 ESR (0-15) mm/hr VBG Lactate (0.6-1.4) mmol/L Sodium (136-145) mmol/L Potassium (3.5-5.1) mmol/L Chloride (98-107) mmol/L Carbon Dioxide (21.0-32.0) mmol/L Anion Gap (3-11) mmol/L BUN (7-18) mg/dL Creatinine (0.70-1.30) mg/dL Est GFR (CKD-EPI 2020) (mL/min/1.73m2) Glucose (74-106) mg/dL Calcium (8.5-10.1) mg/dL Magnesium (1.8-2.4) mg/dL Total Bilirubin (0.2-1.0) mg/dL AST (15-37) U/L ALT (16-63) U/L Alkaline Phosphatase (46-116) U/L C-Reactive Protein (0.0-0.3) mg/dL Total Protein (6.4-8.2) g/dL Albumin (3.4-5.0) g/dL PAWSS Have you Been Recently Intoxicated or Drunk Within the Last 30 days?: No Have you Ever Experienced Previous Episodes of Alcohol Withdrawal?: No Have you ever Experienced Withdrawal Seizures?: No Have you ever Experienced Delirium Tremens(DT)s?: No Have you ever undergone Alcohol Rehabilitation Treatment (i.e, inpt ot outpatient treatment programs)?: No Have you ever Experienced Blackouts?: No Have you ever Combined Alcohol with other Downers within the last 90 days?: No Have you ever Combined Alcohol with any other Substance of Abuse during the last 90 days?: No Positive Blood Alcohol level on Presentation? [PCS.BAL]: No Evidence of Increased Autonomic Activity (i.e. HR>120, tremor, sweating, agitation, nausea)?: No Result: 0
[2022-12-31] MEDS: CLINDAMYCIN 600 MG/50 ML BAG 100 MG IVPB (03:59)
[2022-12-31] MEDS: Normal Saline 1,000 ML 1000 ML IV (03:59)
--- NOTE | 2022-12-31 05:36 | HPE_ITS ---
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 He is presently not working but has multiple lesions over his fingers which appear to be blisters mostly over the medial and lateral aspects of the finger. There is low suspicion for IV injection site infections but urine drug screen will be performed. Patient will be placed on IV clindamycin with observation because of the rapidity of onset of symptoms and elevated WBC, tachycardia with heart rate at 100 and source of infection meeting SIRS criteria. He is a full code. (2) SIRS (systemic inflammatory response syndrome): Start date: 12/31/22 Status: Acute Assessment and plan: Patient has soft criteria for SIRS syndrome and will be observed while treating with IV antibiotic therapy and observing SIRS syndrome and will be on observation while treating IV for progression of symptoms with acute cellulitis and rapidity of physical findings. (3) Alcohol abuse, daily use: Status: Chronic Assessment and plan: [facility] protocol for precaution. (4) Tobacco dependence: Status: Chronic Assessment and plan: Nicotine topical treatment while hospitalized. 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 He appears unkempt and states that he had a insect bite over his left hand in the region of the fourth finger MCP about 24 hours ago which became red and swollen and now has red streaks going up his arm. He came to the ED because of discomfort and the spreading of the redness. He does have other injuries over his hands and appears unkempt as if he is coming from work at the time I examined him early in the morning. He is withdrawn with his history and hesitant. I do not have access come directly if he had IV drug use but urine drug screen will be performed. He denies any rigors or chills. He has had no history of chronic medical problems and does not take any medications. He does have very poor dentition. After evaluation in the ED with his onset of symptoms rapidly progressing he was given IV hydration with IV clindamycin and will be observed with initial treatment of this problem. He has not had a trial of oral antibiotics but this was deferred because of the rapidity of the progression of symptoms and meeting SIRS criteria. The patient is a full code. Review of Systems Narrative: 13 point review of systems otherwise unrevealing or stable PFSH All Active Problems (Updated 12/31/22 @ 06:05 by Jaspal Rodriguez) SIRS (systemic inflammatory response syndrome) (Acute) Alcohol abuse, daily use (Chronic) Tobacco dependence (Chronic) Cellulitis (Acute) Social History Smoking/Tobacco Use Status: Current every day Tobacco Type: cigarettes Smoking risk assessment performed?: Yes Alcohol Intake: current Alcohol Intake frequency: 3 or more drinks per day Alcohol type: beer Drug use: Never Substance use type: does not use Housing: house Do you feel safe at home: Yes Do you feel safe in your relationship?: Yes Meds Allergies and Home Medications Allergies Allergy/AdvReac Type Severity Reaction Status Date / Time No Known Allergies Allergy Unverified 12/31/22 02:10 Home Medications Medication Instructions Recorded Confirmed Type ibuprofen 800 mg tablet 800 mg PO PRN 08/27/13 12/31/22 History Exam Narrative Exam Narrative: General: Patient appears unkempt dressed in dirty work closed though he states he has not been working recently. He is appropriate for age. Alert and oriented x3 and in no acute distress but flattened affect with minimal conversation. HEENT: Normocephalic, unkempt hair and case, coarsened facial features, eyes with pupils equal and react light specially, extraocular movement tact and sclera anicteric. Oropharynx with very poor dentition with many missing teeth and carious broken teeth and slight gingival swelling, oral mucosa is moist. Neck: Supple without JVD. Back: Normal posture without CVA tenderness. Lungs: Fair aeration with broad physical breath sounds diffusely with no focalizing rales or rhonchi. No increased expiratory phase or expiratory wheez e. Heart: Regular rate and rhythm with no murmurs gallops appreciated. Abdomen: Scaphoid contour, soft nontender to palpation with no palpable hepatosplenomegaly. Bowel sounds positive all quadrants. Genitalia/rectal: Exam deferred. Extremities: Without clubbing, cyanosis or pitting edema. Peripheral pulses intact. Hands have multiple injuries at variable stages of healing with a dry ulcer base over the right fourth finger and left thumb having a nodular healing lesion over the ulnar aspect of the proximal phalanx and the left fourth finger area dorsally over the MCP having a slightly purulent point with swelling but no active drainage erythema, and increased warmth to touch with a red streak going up his dorsal left forearm. There are no palpable or tender epitrochlear nodes. Skin: Unkempt, normal color otherwise, warm and dry. Lesions over left hand as described. Neuro: Cranial nerves II through XII grossly intact, no focalizing motor deficits. No tremor. Psych: Flattened affect with pauce conversation and poor eye contact. Mood appears depressed. No abnormal thought processes. Remote and recent memory grossly intact. Results Labs 12/31/22 02:47 12/31/22 02:47 Labs: Laboratory Results - last 24 hr 12/31/22 12/31/22 12/31/22 02:47 02:47 02:47 WBC RBC Hgb Hct MCV MCH MCHC RDW Plt Count MPV Immature Gran % Neutrophils % Lymphocytes % Monocytes % Eosinophils % Basophils % Nucleated RBC % Absolute Neutrophils Absolute Lymphocytes Absolute Monocytes Absolute Eosinophils Absolute Basophils ESR 6 VBG Lactate 1.1 Sodium 142 Potassium 4.1 Chloride 104 Carbon Dioxide 30.1 Anion Gap 7.9 BUN 6 L Creatinine 1.2 Est GFR (CKD-EPI 2020) 80.88 Glucose 78 Calcium 9.5 Magnesium 2.0 Total Bilirubin 0.3 AST 13 L ALT 6 L Alkaline Phosphatase 73 C-Reactive Protein 4.36 H Total Protein 7.4 Albumin 3.7 12/31/22 02:47 WBC 16.24 H RBC 4.49 Hgb 14.4 Hct 41.8 MCV 93 MCH 32.1 MCHC 34.4 RDW 12.3 Plt Count 362 MPV 10.2 Immature Gran % 0.6 Neutrophils % 78.6 Lymphocytes % 12.4 Monocytes % 6.6 Eosinophils % 1.2 Basophils % 0.6 Nucleated RBC % 0.0 Absolute Neutrophils 12.76 H Absolute Lymphocytes 2.01 Absolute Monocytes 1.07 H Absolute Eosinophils 0.19 Absolute Basophils 0.10 ESR VBG Lactate Sodium Potassium Chloride Carbon Dioxide Anion Gap BUN Creatinine Est GFR (CKD-EPI 2020) Glucose Calcium Magnesium Total Bilirubin AST ALT Alkaline Phosphatase C-Reactive Protein Total Protein Albumin Last Vital Signs Temp 37.4 C 12/31/22 02:08 Pulse 85 12/31/22 04:01 Resp 18 12/31/22 02:08 BP 121/77 12/31/22 04:01 Pulse Ox 100 12/31/22 04:20 PAWSS Have you Been Recently Intoxicated or Drunk Within the Last 30 days?: No Have you Ever Experienced Previous Episodes of Alcohol Withdrawal?: No Have you ever Experienced Withdrawal Seizures?: No Have you ever Experienced Delirium Tremens(DT)s?: No Have you ever undergone Alcohol Rehabilitation Treatment (i.e, inpt ot outpatient treatment programs)?: No Have you ever Experienced Blackouts?: No Have you ever Combined Alcohol with other Downers within the last 90 days?: No Have you ever Combined Alcohol with any other Substance of Abuse during the last 90 days?: No Positive Blood Alcohol level on Presentation? [PCS.BAL]: No Evidence of Increased Autonomic Activity (i.e. HR>120, tremor, sweating, agitation, nausea)?: No Result: 0 Time Spent Time spent with Patient: 55-74 minutes Time was spent: preparing to see the patient(eg.review tests), obtaining and/or reviewing separately otained hiistory, ordering medications,tests, procedures and indepentently interpreting results
[2022-12-31] MEDS: Normal Saline 1,000 ML 125 ML IV (07:33)
[2022-12-31 08:20] LABS: Lab Add On Test DONE
[2022-12-31] MEDS: PIPERACILLIN/TAZO 4.5 GM in Normal Saline 100 ML IVPB ×3 (08:40→20:29)
[2022-12-31] MEDS: Folic Acid 1 MG TAB PO (08:41)
[2022-12-31] MEDS: Thiamine 100 MG TAB PO (08:41)
[2022-12-31] MEDS: Multivitamin TAB 1 TAB PO (08:41)
[2022-12-31] MEDS: Enoxaparin 40 MG/0.4 ML SYR SC (08:41)
[2022-12-31 08:53] LABS: Procalcitonin < 0.1 ng/mL
[2022-12-31] MEDS: Omnipaque 350 MG/ML 100 ML BTL IJ (09:42)
[2022-12-31] MEDS: Normal Saline - Diluent 50 ML VIAL IV (09:43)
--- NOTE | 2022-12-31 10:16 | PDOC.CMIN ---
Date of service: 12/31/22 Time of Service: 10:16 Care Management Initial Assmt Initial Assessment REASON FOR HOSPITALIZATION:: Cellulitis with abscess left hand, SIRS PREVIOUS FUNCTIONAL STATUS/SOCIAL/FAMILY SUPPORTS:: Resides in [facility]. 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 Currently unemployed; reportedly a daily drinker of alcohol and smokes tobacco as well. CURRENT FUNCTIONAL STATUS:: Bala was sleeping soundly when CM entered his room, later in the day he provided Dr. Easley with verbal permission to speak with his parents; per her report they shared concerns over ongoing JOSE D issues; football coach consulted. CM to provide Motivational Interview; review resources per patient engagement. Red remains on CIWA protocol-currently being medically treated with Ativan. ADVANCE DIRECTIVES:: None on file. Has patient been provided with info about the portal/API?: Yes Did the patient sign up for the portal?: No CODE STATUS:: Full Code INSURANCE COVERAGE / FINANCIAL ISSUES:: Medicaid PRIMARY CARE PHYSICIAN:: None noted. POTENTIAL DISCHARGE NEEDS:: Attempt PCP attachment, JOSE D review, football coach consult. PATIENT/FAMILY EDUCATION NEEDS:: Review discharge instructions, discuss self care needs Ask Me Three. ANTICIPATED BARRIERS TO DISCHARGE:: CIWA protocol; ETOH withdrawal possible. Undetermined course of antibiotic treatment. TRANSPORTATION:: Private vehicle. PLAN:: Awaiting culture studies and treatment determinations to inform discharge planning, anticipate JOSE D discussion, football coach consult, PCP attachment and review of community based supports. Bala remains on CIWA at this time; tremors and diaphoresis noted at this time; scoring a 6; being treated with ativan. CM continues to follow. PFSH All Active Problems (Updated 12/31/22 @ 15:35 by Sindy Easley MD) Discharge planning issues (Acute) DVT prophylaxis (Acute) Leucocytosis (Acute) Polysubstance abuse (Acute) Cellulitis of left hand (Acute) SIRS (systemic inflammatory response syndrome) (Acute) Alcohol abuse, daily use (Chronic) Tobacco dependence (Chronic) Cellulitis (Acute) Social History Smoking/Tobacco Use Status: Current every day Tobacco Type: cigarettes Smoking risk assessment performed?: Yes Alcohol Intake: current Alcohol Intake frequency: 3 or more drinks per day Alcohol type: beer Drug use: Never Substance use type: does not use Housing: house Do you feel safe at home: Yes Do you feel safe in your relationship?: Yes
[2022-12-31] MEDS: VANCOMYCIN/WATER (PEG) 2 GM/400 ML BAG IV (10:24)
[2022-12-31] MEDS: LORazepam 1 MG TAB PO/SL ×2 (10:36→14:37)
--- NOTE | 2022-12-31 11:53 | OCONE_ITS ---
Date of service: 12/31/22 Time of Service: 11:53 Assessment and Plan Assessment and plan (1) Cellulitis of left hand: Status: Acute Assessment and plan: 37-year-old male, [id number], with left hand cellulitis. Consultation was requested. Patient presented to the ER last night stating that he developed a left hand infection over the past 1-2 days, assumed he was bitten by an insect but did not see an actual insect. He denies any trauma or striking an object. He does states that he had a blister on his left thumb that he drained himself on Wednesday, now only scabbing remains, no evidence of infection. He admits to occasional alcohol use but when asked in greater detail, admits to drinking approximately 3-4 beers daily. He denies having ever withdrawn from alcohol. He smokes almost 1 pack of cigarettes daily. He denies any drug use or history thereof. He gave permission for me to speak with his mother who was also in the exam room, she spoke to me in the hallway and states that he uses both heroin and fentanyl, has been struggling with this for a year, and even attempted 1 formal detox to which he signed himself out. She is not sure whether or not he partakes in IV drug use. In the ER it was found that he had leukocytosis as well as tachycardia, concern for sepsis. IV antibiotics administered and admitted to the hospitalist team. CT imaging was obtained and local soft tissue streaking identified but no fluid collection to suggest obvious abscess. No sara dence of osteomyelitis. Patient appears nontoxic, speaking in full sentences, no respiratory distress. He has scabbing over his right thumb, no evidence of infection. There is also scabbing over the fourth MCP joint with swelling, erythema, warmth, and tenderness which extends to the third and fifth MCP joint as well as proximally to the wrist. Mild induration but there is no fluctuance, drainage, pointing abscess. Patient has full extension of his fingers, flexion is approximately half. No significant discomfort with passive range of motion. Normal radial pulse and capillary refill. Wrist is nontender and has full range of motion. At this time no clear indication for orthopedic surgical intervention. This appears to be localized cellulitis without evidence of abscess, tenosynovitis, or osteomyelitis. Broad spectrum IV antibiotics and monitoring cellulitis and laboratory values seems reasonable, likely transitioning to oral antibiotics. Would recommend also getting care management involved for the concern of IV drug use to potentially discuss detox options. If clinical picture evolves then would be happy to reevaluate. PFSH All Active Problems (Updated 12/31/22 @ 15:35 by Sindy Easley MD) Discharge planning issues (Acute) DVT prophylaxis (Acute) Leucocytosis (Acute) Polysubstance abuse (Acute) Cellulitis of left hand (Acute) SIRS (systemic inflammatory response syndrome) (Acute) Alcohol abuse, daily use (Chronic) Tobacco dependence (Chronic) Cellulitis (Acute) Social History Smoking/Tobacco Use Status: Current every day Tobacco Type: cigarettes Smoking risk assessment performed?: Yes Alcohol Intake: current Alcohol Intake frequency: 3 or more drinks per day Alcohol type: beer Drug use: Never Substance use type: does not use Housing: house Do you feel safe at home: Yes Do you feel safe in your relationship?: Yes Results Last Vital Signs Temp 36.3 C L 12/31/22 08:50 Pulse 60 12/31/22 08:50 Resp 17 12/31/22 08:50 BP 116/80 12/31/22 08:50 Pulse Ox 100 12/31/22 08:50 Labs 12/31/22 02:47 12/31/22 02:47 Labs: Laboratory Results - last 24 hr 12/31/22 12/31/22 12/31/22 02:47 02:47 02:47 WBC RBC Hgb Hct MCV MCH MCHC RDW Plt Count MPV Immature Gran % Neutrophils % Lymphocytes % Monocytes % Eosinophils % Basophils % Nucleated RBC % Absolute Neutrophils Absolute Lymphocytes Absolute Monocytes Absolute Eosinophils Absolute Basophils ESR 6 VBG Lactate 1.1 Sodium 142 Potassium 4.1 Chloride 104 Carbon Dioxide 30.1 Anion Gap 7.9 BUN 6 L Creatinine 1.2 Est GFR (CKD-EPI 2020) 80.88 Glucose 78 Calcium 9.5 Magnesium 2.0 Total Bilirubin 0.3 AST 13 L ALT 6 L Alkaline Phosphatase 73 C-Reactive Protein 4.36 H Total Protein 7.4 Albumin 3.7 Procalcitonin < 0.1 Add-On Test Request 12/31/22 12/31/22 02:47 02:47 WBC 16.24 H RBC 4.49 Hgb 14.4 Hct 41.8 MCV 93 MCH 32.1 MCHC 34.4 RDW 12.3 Plt Count 362 MPV 10.2 Immature Gran % 0.6 Neutrophils % 78.6 Lymphocytes % 12.4 Monocytes % 6.6 Eosinophils % 1.2 Basophils % 0.6 Nucleated RBC % 0.0 Absolute Neutrophils 12.76 H Absolute Lymphocytes 2.01 Absolute Monocytes 1.07 H Absolute Eosinophils 0.19 Absolute Basophils 0.10 ESR VBG Lactate Sodium Potassium Chloride Carbon Dioxide Anion Gap BUN Creatinine Est GFR (CKD-EPI 2020) Glucose Calcium Magnesium Total Bilirubin AST ALT Alkaline Phosphatase C-Reactive Protein Total Protein Albumin Procalcitonin Add-On Test Request DONE
[2022-12-31] MEDS: Ibuprofen 800 MG TAB PO (14:34)
[2022-12-31 15:16] LABS: Bilirubin Negative (Negative); Blood Negative (Negative); Clarity Clear (Clear); Glucose Negative (Negative); Ketones Negative (Negative); Leukocyte Esterase Negative (Negative); Nitrite Negative (Negative); Urobilinogen 0.2 mg/dL (Up to 0.2)
--- NOTE | 2022-12-31 15:16 | W.PM.PROGNOT ---
Date of Service Date of service: 12/31/22 Time of Service: 15:16 Assessment and Plan Assessment and plan (1) Cellulitis of left hand: Status: Acute Assessment and plan: Seen by orthopedics with recommendations of switching abx to vancomycin/zosyn. Will continue this. No abscess on CT - no need for surgery at this time. Trend CRP. Await blood cultures. Elevate extremity. (2) Leucocytosis: Status: Acute Assessment and plan: Due to #1. As above. (3) Polysubstance abuse: Status: Acute Assessment and plan: We will offer sobriety resources to the patient. The patient does not use IVD, per my conversation with him. (4) Alcohol abuse, daily use: Status: Chronic Assessment and plan: Monitor on CIWA. Supplement thiamine, MVI. (5) DVT prophylaxis: Status: Acute Assessment and plan: Sc enoxaparin (6) Discharge planning issues: Status: Acute Assessment and plan: Full code Subjective Subjective Interval history since last seen: Mr Miramontes states that his pain is 6/10. He states that the medication that has helped his pain the most has been toradol. Denies numbness and tingling in the hand except right around the sight of redness. Evaluated by orthopedic surgery - not felt to require surgery, and CT did not show an abscess. No dizziness, CP, SOB, n/v. Admits to smoking crack. Agrees to me speaking to his mother. Per mother Leah ([phone]), he does smoke crack, but also smokes and snorts heroine, meth, fentanyl - anything he can get his hands on. He previously had been a [facility] client and had done a couple of rehab programs, but has always relapsed. He had been on methadone before. The parents are hoping we can offer Bala some resources to help with his addiction. Exam Narrative Exam Narrative: General: Pleasant male, elevating his LUE in bed HEENT: EOMI, MMM, poor dentition Heart: RRR, no m/r/g Lungs: CTAB Abdomen: soft, nontender, nondistended Extremities: no edema; erythema dorsal surface L hand not involving MCP joints Objective Last Vital Signs Temp 36.8 C 12/31/22 11:15 Pulse 65 12/31/22 11:15 Resp 14 12/31/22 11:15 BP 119/81 12/31/22 11:15 Pulse Ox 99 12/31/22 11:15 Laboratory Results - last 24 hr 12/31/22 12/31/22 12/31/22 02:47 02:47 02:47 WBC RBC Hgb Hct MCV MCH MCHC RDW Plt Count MPV Immature Gran % Neutrophils % Lymphocytes % Monocytes % Eosinophils % Basophils % Nucleated RBC % Absolute Neutrophils Absolute Lymphocytes Absolute Monocytes Absolute Eosinophils Absolute Basophils ESR 6 VBG Lactate 1.1 Sodium 142 Potassium 4.1 Chloride 104 Carbon Dioxide 30.1 Anion Gap 7.9 BUN 6 L Creatinine 1.2 Est GFR (CKD-EPI 2020) 80.88 Glucose 78 Calcium 9.5 Magnesium 2.0 Total Bilirubin 0.3 AST 13 L ALT 6 L Alkaline Phosphatase 73 C-Reactive Protein 4.36 H Total Protein 7.4 Albumin 3.7 Procalcitonin < 0.1 Add-On Test Request 12/31/22 12/31/22 02:47 02:47 WBC 16.24 H RBC 4.49 Hgb 14.4 Hct 41.8 MCV 93 MCH 32.1 MCHC 34.4 RDW 12.3 Plt Count 362 MPV 10.2 Immature Gran % 0.6 Neutrophils % 78.6 Lymphocytes % 12.4 Monocytes % 6.6 Eosinophils % 1.2 Basophils % 0.6 Nucleated RBC % 0.0 Absolute Neutrophils 12.76 H Absolute Lymphocytes 2.01 Absolute Monocytes 1.07 H Absolute Eosinophils 0.19 Absolute Basophils 0.10 ESR VBG Lactate Sodium Potassium Chloride Carbon Dioxide Anion Gap BUN Creatinine Est GFR (CKD-EPI 2020) Glucose Calcium Magnesium Total Bilirubin AST ALT Alkaline Phosphatase C-Reactive Protein Total Protein Albumin Procalcitonin Add-On Test Request DONE Objective Narrative Objective Narrative: CT L hand: Contain is soft tissue streaking but no distinct fluid collection to suggest the presence of an obvious abscess.? No evidence of osteomyelitis. PAWSS Have you Been Recently Intoxicated or Drunk Within the Last 30 days?: No Have you Ever Experienced Previous Episodes of Alcohol Withdrawal?: No Have you ever Experienced Withdrawal Seizures?: No Have you ever Experienced Delirium Tremens(DT)s?: No Have you ever undergone Alcohol Rehabilitation Treatment (i.e, inpt ot outpatient treatment programs)?: No Have you ever Experienced Blackouts?: No Have you ever Combined Alcohol with other Downers within the last 90 days?: No Have you ever Combined Alcohol with any other Substance of Abuse during the last 90 days?: No Positive Blood Alcohol level on Presentation? [PCS.BAL]: No Evidence of Increased Autonomic Activity (i.e. HR>120, tremor, sweating, agitation, nausea)?: No Result: 0 Time Spent with Patient Time Spent with Patient: 25-34 minutes Time was spent: preparing to see the patient(eg.review tests), obtaining and/or reviewing separately otained hiistory, ordering medications,tests, procedures, referring, communicating with other health primary care sales representative, indepentently interpreting results, counseling the patient and care coordination
[2022-12-31 15:56] LABS: *AMPHETAMINES SCREEN URINE Negative (Negative); *BARBITURATES SCREEN URINE Negative (Negative); *BENZODIAZEPINES SCREEN URINE Negative (Negative); Cannabinoids THC Negative (Negative); Cocaine Screen,Urine Positive (Negative); METHADONE URINE SCREEN Negative (Negative); OPIATES URINE SCREEN Negative (Negative)
[2022-12-31 15:57] LABS: Tricyclic Antidepressants Negative (Negative)
--- NOTE | 2022-12-31 17:57 | NUR.NOTE ---
Nursing Note: Pts mother came to nursing station and spoke with battery charger regarding her concerns that her son is high and whoever visited him today may have given him something to make him high. Mother reported she knows when he is high and has taken something. Mother reported she asked pt if she could look in his gift bag which he had next to him on the bed. Mother reported pt told her no and to leave. This RN spoke with manager non profit, Security, M/S Director, Nursing Bisque Grader- (who spoke with Salon Shampoo Assistant), and Attending MD directly. Per [facility] policy and discussions with the above named staff members- it was determined this RN will discuss with pt if he had taken anything other than the medications administered to him by the RN at [facility]. Per this RNs assessment- pt was difficult to arouse, vitals were stable. RN spoke with pt and inquired if he had taken anything other then the medications we gave him today. Pt reported no. RN let pt know that for his safety- RN would like to see what he has in his gift bag that he has been keeping close to him in the bed. Pt showed this RN everything in the bag with no hesitation- bag of sweedish fish, bag of pretzels, scratch tickets, and a red bull. RN asked again to confirm- if pt took anything other than the medications we have administered today. Pt reported no. RN asked pt if he had taken ativan in the past,and reminded pt that he rec'd a total of 2mg PO ativan today. Pt reported he has not. RN let pt know he appears very drowsy and we want to make sure his is safe. Pt reports he is tired. This RN relayed this info to all the staff involved in the discussion- RN then spoke with MD directly to make her aware. PRN Narcan was ordered and tele was ordered. RN Bisque Grader advised staff to do more frequent rounding- [id number] to ensure pt safety. Pt was also placed on tele.
[2022-12-31] MEDS: VANCOMYCIN/WATER (PEG) 1 GM/200 ML BAG IV (21:27)
--- NOTE | 2022-12-31 22:11 | NUR.NOTE ---
Informed MD r/t increased HR in pt. MD went down to speak to pt. When MD exited the room, pt HR increased to >160 sustained. MD watched the monitor w/this nurse and stated he would go down to the ICU to check the HR. MD did not want pt room searched at this time. motor assembly supervisor made aware. HR now is 103. Will continue to monitor
[2023-01-01] VITALS (7 sets, daily range): BP systolic 108–119; BP diastolic 70–78; PULSE 61–81; RESP 16–21; TEMP 36.1–37.1; O2SAT 99–100
--- NOTE | 2023-01-01 | DI.US_ITS ---
APPROVED REPORT EXAM: Comprehensive 2D, Doppler, and color-flow Echocardiogram Patient Location: In-Patient Room/Bed: 209 Internet Assessor: Dang Nelson RDCS (AE) Indications: Bacteremia, Concern for endocarditis, smoker Other Information Study Quality: Adequate. Technically limited study due to body habitus h/o smoking, , inability to po sition patient exam done bedside supine. Conclusion Normal left ventricular wall thickness and chamber size. Ejection fraction is 60%. Wall motion is n ormal Normal right ventricular size and systolic function Both atria are normal in size There is no structural or hemodynamically significant valvular disease No valvular vegetations were identified Mildly dilated aortic root Wall motion Left Ventricle The left ventricle is normal size. The left ventricular systolic function is normal. The left ventric ular ejection fraction is within the normal range. There is normal left ventricular wall thickness. T here is normal LV segmental wall motion. There is no ventricular septal defect visualized. LVEF is 60 %. Right Ventricle The right ventricle is normal size. The right ventricular systolic function is normal. Atria The left atrium size is normal. The right atrium size is normal. The interatrial septum is intact wit h no evidence for an atrial septal defect. Aortic Valve The aortic valve is normal in structure. Aortic valve is trileaflet. There is no aortic valvular memo nosis. Mitral Valve The mitral valve is normal in structure. No evidence of mitral valve stenosis. Trace mitral regurgita tion. Tricuspid Valve The tricuspid valve is normal in structure. There is no tricuspid valve stenosis. Trace tricuspid reg urgitation. Unable to assess PA pressure. Pulmonic Valve The pulmonary valve is normal in structure. There is no pulmonic valvular stenosis. Trace pulmonic re gurgitation. Great Vessels Aortic root is mildly dilated. Ascending aorta is not well visualized. IVC is normal in size and col lapses >50% with inspiration. Pericardium There is no pericardial effusion. 2D Dimensions IVSD d PLAX 0.79 cm M: 0.6-1.2 LVPW d PLAX 0.93 cm M: 0.6 - 1.2 LVID d PLAX 4.59 cm M: 4.2 - 5.8 LVDs 3.05 cm M: 2.5 - 4.0 Ao Root d 4.18 cm M: 3.1 - 3.7 LV EF Teichholz 61.0 % FS 32.55 % M-Mode TAPSE 2.27 cm (M/F) >1.7 LV Diastology MV E' medial 0.121 (>0.07 m/s) E/A Ratio 1.5 LV E/e MED 5.73 (<14) MV E Vmax 0.69 (0.4-1.3 m/s) MV E' lateral 0.149 (>0.1 m/s) MV A Vmax 0.45 (0.4-1.3 m/s) LV E/e LAT 4.65 (<14) MV E/E' medial 5.73 MV E/E' lateral 4.65 MV (E/E' average) 5.14 Aortic Valve LVOT Vmax 0.88 m/s AoV Area Vmax 3.30 cm2 LVOT Peak Grad 3.1 mmHg LVOT Mean Grad 1.5 mmHg LVOT Diam s 2.10 cm AoV Vmax 0.96 m/s Velocity Ratio 0.92 AoV Peak Grad 3.7 mmHg LVOT SV 66.78 mL AoV Mean Grad 2.3 mmHg AoV Area VTI 2.99 cm2 Mitral Valve MV DT 204 (160-240 msec) MV Vmax TIPS 0.64 m/s MV Mean Grad 0.6 (<2mmHg) MV VTI 0.157 m Pulmonary Valve PV Mean Grad 1.0 mmHg RVOT Peak Gr. 0.75 mmHg RVOT Mean Gr. 0.40 mmHg RVOT VTI 0.091 m RVOT Vmax 0.43 m/s Tricuspid Valve RA Pressure 3.00 mmHg
--- NOTE | 2023-01-01 | DI.RAD_ITS ---
Exam(s) XR PORTABLE CHEST AP EXAM: XR PORTABLE CHEST AP CLINICAL HISTORY: cough TECHNIQUE: 2D digital imaging was performed. COMPARISON: CR RIGHT RIBS TO INCLUDE CXR from 09/11/2008 FINDINGS: LUNGS: Clear. No pleural abnormality seen. HEART: Normal size. AORTA: Normal diameter. BONES: Unremarkable for age. Soft tissues: Unremarkable. IMPRESSION: No acute findings. DATA REPOSITORY: RADIATION DOSE DELIVERED:
[2023-01-01] MEDS: PIPERACILLIN/TAZO 4.5 GM in Normal Saline 100 ML IVPB ×2 (02:00→08:11)
[2023-01-01 06:35] LABS: Abs Immature Grans 0.04 10^3/uL (0.0-0.06); Absolute Lymphocyte Count 1.47 10^3/uL (1.2-3.4); Absolute Monocyte Count 0.95 10^3/uL (0.1-0.8); Absolute Neutrophil Count 10.03 10^3/uL (1.2-6.7); Basophils % 0.5; Eosinophils % 2.6; HCT 39.4 % (40.0-50.0); HGB 13.5 g/dL (13.5-17.5); Immature Grans % 0.3; Lymphocytes % 11.4; MCH 32.6 pg (27.0-33.0); MCHC 34.3 % (32.0-36.0); MCV 95 fL (80-95); MPV 10.7 fL (8.0-11.0); Monocytes % 7.4; Neutrophils % 77.8; Platelet Count 315 10^3/uL (130-400); RBC 4.14 10^6/uL (4.36-5.78); RDW 12.4 % (11.8-14.1); RDW-SD 43.5 fL; WBC 12.89 10^3/uL (4.4-10.8)
[2023-01-01 06:47] LABS: Absolute Basophil Count 0.06 10^3/uL (0.0-0.2); Absolute Eosinophil Count 0.34 10^3/uL (0.0-0.7)
[2023-01-01 07:00] LABS: ALT 24 U/L (16-63); AST 19 U/L (15-37); Albumin 2.9 g/dL (3.4-5.0); Alkaline Phosphatase 62 U/L (46-116); Anion Gap 8.4 mmol/L (3-11); BUN 5 mg/dL (7-18); Bilirubin, Total 0.5 mg/dL (0.2-1.0); C-Reactive Protein 7.14 mg/dL (0.0-0.3); CO2 25.6 mmol/L (21.0-32.0); Chloride 109 mmol/L (98-107); Estimated GFR 100.66 (mL/min/1.73m2); Glucose 96 mg/dL (74-106); Magnesium 2.1 mg/dL (1.8-2.4); Sodium 143 mmol/L (136-145); Total Protein 6.3 g/dL (6.4-8.2)
[2023-01-01] MEDS: Enoxaparin 40 MG/0.4 ML SYR SC (08:10)
[2023-01-01] MEDS: Thiamine 100 MG TAB PO (08:10)
[2023-01-01] MEDS: Multivitamin TAB 1 TAB PO (08:10)
[2023-01-01] MEDS: Folic Acid 1 MG TAB PO (08:15)
--- NOTE | 2023-01-01 10:09 | PDOC.CMPRO ---
Date of service: 01/01/23 Time of Service: 10:09 Care Management Progress Note Progress Note Text Progress Note Text: S/O: Bala was sleeping when CM attempted to meet with him today. Per report, he had repeat blood cultures today, based on these results he may require a BOSSMAN. He also may require penitentiary antibiotics. The motorcoach driver has been in to meet with him, and will follow him while inpatient as well as in the community. CM will continue to follow. A: Bala is a 37 year old male admitted to [facility] on 12/31/22 for cellulitis with abscess, left hand, SIRS. P:?Awaiting culture studies and treatment determinations to inform discharge planning, anticipate JOSE D discussion, motorcoach driver consult, PCP attachment and review of community based supports. Bala remains on CIWA at this time; tremors and diaphoresis noted at this time; scoring a 6; being treated with ativan. CM continues to follow.
[2023-01-01] MEDS: VANCOMYCIN/WATER (PEG) 1 GM/200 ML BAG IV (10:27)
[2023-01-01] MEDS: Ketorolac 15 MG/ML VIAL IVP ×2 (11:28→20:08)
--- NOTE | 2023-01-01 12:24 | PGE_ITS ---
Date of Service Date of service: 01/01/23 Time of Service: 12:24 Assessment and Plan Assessment and plan (1) Gram-positive bacteremia: Status: Acute Assessment and plan: Likely related to the cellulitis of L hand. Blood cx repeated this am. Continue empiric vancomycin/zosyn. Obtain a TTE. Depending on blood culture results, may need a BOSSMAN. We discussed that he may require superintendent marine oil terminal antibiotics. Trend CRP, procalcitonin. Await speciation/sensitivities. (2) Cellulitis of left hand: Status: Acute Assessment and plan: Seen by orthopedics. No abscess on CT - no need for surgery at this time. As above Elevate extremity. (3) Paroxysmal tachycardia: Status: Acute Assessment and plan: In setting of suspected substance use. Continue to monitor on tele. (4) Polysubstance abuse: Status: Acute Assessment and plan: Meeting with a track and field coach; received sobriety resources. He specifically declined nicotine replacement in conversation with me. Advised not to use substances. The patient does not use IVD, per my conversation with him. (5) Alcohol abuse, daily use: Status: Chronic Assessment and plan: Monitor on CIWA. Supplement thiamine, MVI. Latest CIWA scores are zeros and 1s. (6) DVT prophylaxis: Status: Acute Assessment and plan: Sc enoxaparin (7) Discharge planning issues: Status: Acute Assessment and plan: Full code Continues to require hospitalization. Will discuss with mother Leah. Subjective Subjective Interval history since last seen: Mr Miramontes states that his hand is sore. Denies dizziness, CP, SOB, n/v. Afebrile. We discussed his positive blood cultures, the need for an echo and, possibly, for a BOSSMAN. He denies IVD use. He denies substance use for several months. We discussed that he had a UDS positive for cocaine and that I am just trying to offer him some help. He did have an episode of sinus tachycardia overnight with HR of 160s. The patient denies cocaine use around that time. Exam Narrative Exam Narrative: General: Pleasant male, somnolent, elevating his LUE in bed HEENT: EOMI, MMM, poor dentition Heart: RRR, no m/r/g Lungs: CTAB Abdomen: soft, nontender, nondistended Extremities: no edema; erythema dorsal surface L hand not involving MCP joints, appears about the same Objective Last Vital Signs Temp 36.9 C 01/01/23 10:59 Pulse 61 01/01/23 10:59 Resp 16 01/01/23 07:53 BP 117/78 01/01/23 10:59 Pulse Ox 99 01/01/23 10:59 Laboratory Results - last 24 hr 12/31/22 12/31/22 01/01/23 14:48 14:48 06:20 WBC RBC Hgb Hct MCV MCH MCHC RDW Plt Count MPV Immature Gran % Neutrophils % Lymphocytes % Monocytes % Eosinophils % Basophils % Nucleated RBC % Absolute Neutrophils Absolute Lymphocytes Absolute Monocytes Absolute Eosinophils Absolute Basophils Sodium 143 Potassium 4.0 Chloride 109 H Carbon Dioxide 25.6 Anion Gap 8.4 BUN 5 L Creatinine 1.0 Est GFR (CKD-EPI 2020) 100.66 Glucose 96 Calcium 9.0 Magnesium 2.1 Total Bilirubin 0.5 AST 19 ALT 24 Alkaline Phosphatase 62 C-Reactive Protein 7.14 H Total Protein 6.3 L Albumin 2.9 L Urine Color Yellow Urine Clarity Clear Urine pH 7.0 Ur Specific Champion 1.010 Urine Protein Negative Urine Ketones Negative Urine Blood Negative Urine Nitrite Negative Urine Bilirubin Negative Urine Urobilinogen 0.2 Ur Leukocyte Esterase Negative Urine Glucose Negative Urine Opiates Screen Negative Urine Methadone Screen Negative Ur Barbiturates Screen Negative Ur Tricyclics Screen Negative Ur Amphetamines Screen Negative U Benzodiazepines Scrn Negative Urine Cocaine Screen Positive A Ur THC Screen Negative 01/01/23 06:20 WBC 12.89 H RBC 4.14 L Hgb 13.5 Hct 39.4 L MCV 95 MCH 32.6 MCHC 34.3 RDW 12.4 Plt Count 315 MPV 10.7 Immature Gran % 0.3 Neutrophils % 77.8 Lymphocytes % 11.4 Monocytes % 7.4 Eosinophils % 2.6 Basophils % 0.5 Nucleated RBC % 0.0 Absolute Neutrophils 10.03 H Absolute Lymphocytes 1.47 Absolute Monocytes 0.95 H Absolute Eosinophils 0.34 Absolute Basophils 0.06 Sodium Potassium Chloride Carbon Dioxide Anion Gap BUN Creatinine Est GFR (CKD-EPI 2020) Glucose Calcium Magnesium Total Bilirubin AST ALT Alkaline Phosphatase C-Reactive Protein Total Protein Albumin Urine Color Urine Clarity Urine pH Ur Specific Champion Urine Protein Urine Ketones Urine Blood Urine Nitrite Urine Bilirubin Urine Urobilinogen Ur Leukocyte Esterase Urine Glucose Urine Opiates Screen Urine Methadone Screen Ur Barbiturates Screen Ur Tricyclics Screen Ur Amphetamines Screen U Benzodiazepines Scrn Urine Cocaine Screen Ur THC Screen PAWSS Have you Been Recently Intoxicated or Drunk Within the Last 30 days?: No Have you Ever Experienced Previous Episodes of Alcohol Withdrawal?: No Have you ever Experienced Withdrawal Seizures?: No Have you ever Experienced Delirium Tremens(DT)s?: No Have you ever undergone Alcohol Rehabilitation Treatment (i.e, inpt ot outpatient treatment programs)?: No Have you ever Experienced Blackouts?: No Have you ever Combined Alcohol with other Downers within the last 90 days?: No Have you ever Combined Alcohol with any other Substance of Abuse during the last 90 days?: No Positive Blood Alcohol level on Presentation? [PCS.BAL]: No Evidence of Increased Autonomic Activity (i.e. HR>120, tremor, sweating, agitation, nausea)?: No Result: 0 Time Spent with Patient Time Spent with Patient: 35-49 minutes Time was spent: preparing to see the patient(eg.review tests), obtaining and/or reviewing separately otained hiistory, ordering medications,tests, procedures, referring, communicating with other health toddler caregiver, indepentently interpreting results, counseling the patient and care coordination
[2023-01-01] MEDS: Normal Saline Flush 10 ML SYR IVP ×2 (14:12→20:09)
[2023-01-01] MEDS: cefTRIAXone 2 GM/50 ML BAG IVPB (14:12)
[2023-01-01 14:37] LABS: COVID-19 PCR Negative (Negative); Influenza A PCR Negative (Negative); Influenza B PCR Negative (Negative); RSV PCR Negative (Negative)
[2023-01-01 14:47] LABS: Source Nasopharynx
[2023-01-02] VITALS (7 sets, daily range): BP systolic 99–121; BP diastolic 64–80; PULSE 54–87; RESP 14–18; TEMP 35.1–36.7; O2SAT 96–100
[2023-01-02 07:12] LABS: Abs Immature Grans 0.06 10^3/uL (0.0-0.06); Absolute Basophil Count 0.08 10^3/uL (0.0-0.2); Absolute Eosinophil Count 0.33 10^3/uL (0.0-0.7); Absolute Monocyte Count 0.65 10^3/uL (0.1-0.8); Absolute Neutrophil Count 7.77 10^3/uL (1.2-6.7); Basophils % 0.7; Eosinophils % 3.1; HGB 13.7 g/dL (13.5-17.5); Immature Grans % 0.6; Lymphocytes % 16.8; MCH 32.8 pg (27.0-33.0); MCHC 34.3 % (32.0-36.0); MCV 96 fL (80-95); MPV 10.5 fL (8.0-11.0); Monocytes % 6.1; Neutrophils % 72.7; Platelet Count 320 10^3/uL (130-400); RBC 4.18 10^6/uL (4.36-5.78); RDW 12.3 % (11.8-14.1); RDW-SD 43.6 fL; WBC 10.69 10^3/uL (4.4-10.8)
[2023-01-02 07:36] LABS: Anion Gap 6.7 mmol/L (3-11); BUN 5 mg/dL (7-18); C-Reactive Protein 3.29 mg/dL (0.0-0.3); CO2 27.3 mmol/L (21.0-32.0); CREATININE 0.9 mg/dL (0.70-1.30); Calcium 9.3 mg/dL (8.5-10.1); Chloride 112 mmol/L (98-107); Estimated GFR 114.22 (mL/min/1.73m2); Glucose 94 mg/dL (74-106); Magnesium 2.2 mg/dL (1.8-2.4); Potassium 4.2 mmol/L (3.5-5.1); Sodium 146 mmol/L (136-145)
[2023-01-02] MEDS: Multivitamin TAB 1 TAB PO (07:51)
[2023-01-02] MEDS: Folic Acid 1 MG TAB PO (07:51)
[2023-01-02] MEDS: Thiamine 100 MG TAB PO (07:51)
[2023-01-02] MEDS: Enoxaparin 40 MG/0.4 ML SYR SC (07:52)
[2023-01-02] MEDS: Ketorolac 15 MG/ML VIAL IVP (07:55)
[2023-01-02 08:38] LABS: Procalcitonin < 0.1 ng/mL
[2023-01-02] MEDS: cefTRIAXone 2 GM/50 ML BAG IVPB (14:04)
[2023-01-02] MEDS: Normal Saline Flush 10 ML SYR IVP (14:04)
--- NOTE | 2023-01-02 14:30 | DSE_ITS ---
Date of service: 01/02/23 Time of Service: 14:30 DS: Diagnosis Discharge Diagnosis (1) Cellulitis of left hand: Status: Acute (2) Streptococcal bacteremia: Status: Acute Asessment and Plan: Strep pyogenes (3) Paroxysmal tachycardia: Status: Acute (4) Polysubstance abuse: Status: Acute (5) Alcohol abuse, daily use: Status: Chronic (6) Acute bronchitis: Status: Acute Discharge Plan Disposition Patient Disposition: Home Condition: Improving Discharge Details Reason For Visit: Cellulitis with abscess Left Hand,GPC bacteremia Admit Date/Time: 01/01/23 07:21 Admit Provider: Jaspal Rodriguez Attending Provider: Jaspal Rodriguez Primary Care Provider: Unknown,Unknown Hospital Course Hospital Course: Mr Miramontes is a 37 year old male with PMHx of polysubtance abuse (though reportedly not IVD), who was a patient on [facility] hospitalist service from 12/31/22 until 01/02/23 for cellulitis of L hand. He was empirically started on clindamycin, which orthodic surgery recommended to expand to vancomycin and zosyn. CT LUE ruled out abscess/fluid collection, and no surgical intervention was necessary. His blood culture (1 bottle out of 4) collected on admission was positive for Strep pyogenes. Repeat blood cultures done on 01/01/23 were negative. Antibiotics were then changed to high dose ceftriaxone. A transthoracic echocardiogram was obtained and showed no vegetations. The case was discussed with infectious diseases who felt that, since it was only 1 bottle positive, repeat blood cultures were negative, and a TTE was negative, the patient would not need to have a BOSSMAN and that he could complete his therapy with oral antibiotics, such as cefpodoxime for 10 days. The patient was offered to stay in the hospital for another 24-48 hours to continue receiving IV antibiotics but was very insistent on going home today. Of note, the patient was offered sobriety resources while here. There is also a suspicion that he might have used illicit substances while in the hospital. He did not have evidence of clinically significant alcohol withdrawal while in the hospital. He is being prescribed nicotine patches, narcan, MVI, thiamine on discharge. He did have a cough. CXR was negative for any acute process. FLUVID was negative. The patient was offered IS and acapella. I am also prescribing him mucinex. He should follow up with orthopedics in 2 weeks. He should also establish care with a PCP. Care for patient as well as completion of his discharge summary on day of discharge took 60 minutes. Home Meds and New Rx's Prescriptions: New guaifenesin [Mucus Relief ER] 600 mg Tablet Extended Release 12hr 600 mg PO BID PRN PRN (Reason: cough) Qty: 30 0RF multivitamin [Multiple Vitamins] Tablet 1 tab PO QAM Qty: 30 0RF nicotine 21 mg/24 hr Patch 24 Hour 21 mg transdermal DAILY PRN PRNQty: 28 0RF naloxone 4 mg/actuation Trinity,Non-Aerosol 4 mg NS PRN PRN (Reason: opioid overdose) Qty: 2 0RF thiamine mononitrate (vit B1) [Vitamin B-1 (mononitrate)] 100 mg Tablet 100 mg PO QAM Qty: 30 0RF cefpodoxime 200 mg tablet 200 mg PO BID Qty: 20 0RF Rx Instructions: must administer with a meal/food Continued ibuprofen 800 MG tablet 800 mg PO PRN Discharge Instructions Instructions: Cefpodoxime Proxetil (By mouth), Cellulitis (DC), Bacteremia (DC), Acute Bronchitis (ED), Antitussive/Expectorant (By mouth) Additional Instructions: Finish your antibiotics as prescribed. Do not miss any doses. Keep your hands clean. Return to the hospital if you notice any worsening in the redness of your hand, if you develop a fever, bleeding, chest pain, or shortness of breath. Follow up with a PCP in 1-2 weeks. We will be getting back to you on Wednesday with that information. Follow up with orthopedic surgery in 2 weeks. Seek sobriety at the resources provided. You should stop smoking. Stand Alone Forms: Nursing Discharge Form Referrals: Gunnar Watson MD [ [facility] STAFF PHYSICIAN] - (Please call Wednesday to make a follow up appointment for 2 weeks. ) Ruthy Rosario [ CONSULTING PHYSICIAN] - (We will call you on Wednesday with appointment. ) Activity:: Activity as Tolerated Equipment/Supplies:: No Equipment Needed Diet:: As Tolerated Discharge Orders Discharge Orders: Discharge Order (Routine); Ordered 01/02/23 Ordered By: Sindy Easley DS: Summary Time Spent with Patient providing and/or coordinating discharge services: Greater than 30 minutes Status at Discharge Functional status at discharge: independent ambulation Overall status at discharge: patient is progressing back to baseline Mental Status: mental status grossly normal Speech and Movement: speech and movement normal Mood: congruent mood Affect: blunted Exam Narrative Exam Narrative: General: Pleasant male, A&Ox3, very alert HEENT: EOMI, MMM, poor dentition Heart: RRR, no m/r/g Lungs: CTAB Abdomen: soft, nontender, nondistended Extremities: no edema; erythema dorsal surface L hand not involving MCP joints has improved; there is an opening in the skin which is not draining; no discharge could be expressed, no induration or palpable abscess, full ROM of L hand/fingers. Overall, improved. Psych Mental Status: mental status grossly normal Speech and Movement: speech and movement normal Mood: congruent mood Affect: blunted DS: Data Vitals/I&O Vitals and I&O: Vital Signs Temperature 35.6 C L 01/02/23 11:27 Temperature Source Tympanic 01/02/23 11:27 Pulse 62 01/02/23 11:27 Pulse Rhythm Regular 01/02/23 08:08 Respiratory Rate 18 01/02/23 11:27 Respiratory Effort Normal, Non-Labored 01/02/23 08:08 Respiratory Depth Normal 01/02/23 08:08 Respiratory Pattern Normal 01/02/23 08:08 Blood Pressure 118/76 01/02/23 11:27 Blood Pressure Mean 87 12/31/22 04:01 Blood Pressure Position Sitting 12/31/22 02:08 Pulse Oximetry 99 01/02/23 11:27 Oxygen Delivery Method Room Air 01/02/23 11:27 Oxygen Flow Rate 0 01/02/23 11:27 Pain Level 5 01/02/23 07:55 Intake & Output 01/01/23 01/02/23 01/02/23 23:59 11:59 23:59 Intake Total 250 / 1070 250 / 250 Balance 250 / 1070 250 / 250 Weight 67.8 kg Intake: IV 250 / 950 200 / 200 Oral 50 / 50 Other: Urine Color Yellow Urine Appearance Clear Comment pT voides in toliet independently Voiding Methods Toilet Data Completed and Pending Completed studies during hospitalization [Text1]: LUE CT 12/31/22: Contain is soft tissue streaking but no distinct fluid collection to suggest the presence of an obvious abscess.? No evidence of osteomyelitis. CXR 01/01/23: No acute? findings. Echo 01/01/23; Normal left ventricular wall thickness and chamber size.? Ejection fraction is 60%.? Wall motion is normal Normal right ventricular size and systolic function Both atria are normal in size There is no structural or hemodynamically significant valvular disease No valvular vegetations were identified Mildly dilated aortic root Labs on day of discharge: Labs from last 24 hours 01/02/23 01/02/23 01/02/23 06:35 06:35 06:35 WBC 10.69 RBC 4.18 L Hgb 13.7 Hct 40.0 MCV 96 H MCH 32.8 MCHC 34.3 RDW 12.3 Plt Count 320 MPV 10.5 Immature Gran % 0.6 Neutrophils % 72.7 Lymphocytes % 16.8 Monocytes % 6.1 Eosinophils % 3.1 Basophils % 0.7 Nucleated RBC % 0.0 Absolute Neutrophils 7.77 H Absolute Lymphocytes 1.80 Absolute Monocytes 0.65 Absolute Eosinophils 0.33 Absolute Basophils 0.08 Sodium 146 H Potassium 4.2 Chloride 112 H Carbon Dioxide 27.3 Anion Gap 6.7 BUN 5 L Creatinine 0.9 Est GFR (CKD-EPI 2020) 114.22 Glucose 94 Calcium 9.3 Magnesium 2.2 C-Reactive Protein 3.29 H Procalcitonin < 0.1 COVID-19 Source SARS-CoV-2 (PCR) Influenza Type A (PCR) Influenza Type B (PCR) RSV (PCR) 01/01/23 13:02 WBC RBC Hgb Hct MCV MCH MCHC RDW Plt Count MPV Immature Gran % Neutrophils % Lymphocytes % Monocytes % Eosinophils % Basophils % Nucleated RBC % Absolute Neutrophils Absolute Lymphocytes Absolute Monocytes Absolute Eosinophils Absolute Basophils Sodium Potassium Chloride Carbon Dioxide Anion Gap BUN Creatinine Est GFR (CKD-EPI 2020) Glucose Calcium Magnesium C-Reactive Protein Procalcitonin COVID-19 Source Nasopharynx SARS-CoV-2 (PCR) Negative Influenza Type A (PCR) Negative Influenza Type B (PCR) Negative RSV (PCR) Negative Preliminary micro results at discharge 12/31/22 02:56 Blood Culture - Preliminary Blood Strep Pyogenes (Group A) 01/01/23 06:32 Blood Culture - Preliminary Blood NO GROWTH 24 HOURS 01/01/23 06:20 Blood Culture - Preliminary Blood NO GROWTH 24 HOURS 12/31/22 02:47 Blood Culture - Preliminary Blood NO GROWTH 48 HOURS PFSH All Active Problems (Updated 01/02/23 @ 14:54 by Sindy Easley MD) Acute bronchitis (Acute) Streptococcal bacteremia (Acute) Gram-positive bacteremia (Acute) Paroxysmal tachycardia (Acute) Discharge planning issues (Acute) DVT prophylaxis (Acute) Leucocytosis (Acute) Polysubstance abuse (Acute) Cellulitis of left hand (Acute) SIRS (systemic inflammatory response syndrome) (Acute) Alcohol abuse, daily use (Chronic) Tobacco dependence (Chronic) Cellulitis (Acute) Social History Smoking/Tobacco Use Status: Current every day Tobacco Type: cigarettes Smoking risk assessment performed?: Yes Alcohol Intake: current Alcohol Intake frequency: 3 or more drinks per day Alcohol type: beer Drug use: Never Substance use type: does not use Housing: house Do you feel safe at home: Yes Do you feel safe in your relationship?: Yes Time Spent with Patient Time Spent with Patient: 45-69 minutes Time was spent: preparing to see the patient(eg.review tests), obtaining and/or reviewing separately otained hiistory, ordering medications,tests, procedures, r eferring, communicating with other health child care leader, indepentently interpreting results, counseling the patient and care coordination
--- NOTE | 2023-01-02 16:35 | PDOC.CMDIS ---
Date of service: 01/02/23 Time of Service: 16:35 LACE Index Scoring Tool Questions: Length of Stay (in days): 2 Was the patient admitted via the E.D.?: Yes E.D. Visits: 1 Answers: Total Score: 6 Risk of Readmission: Low Risk Care Management Discharge Plan Reason for Hospitalization: Cellulitis with abscess left hand, SIRS Discharge Plan: Patient is discharged home on oral antibiotics with no services. He will follow up with an assigned PCP, orthopedics and discharge plan of care as instructed. He is transported home via private vehicle by family. Patient/Family Education Needs: Review of discharge instructions including medications and follow up plan of care; discuss Ask Me Three.
== END 2023-01-02 15:40 | disposition home or self-care (01) | DRG 603 ==
LOC: ER 05:10 → MS 05:19
PROVIDERS: Internal Medicine; Admitting Provider Family Medicine; Emergency Provider Student in an Organized Health Care Education/Training Program; Visit Provider Family Medicine
DX: L03.114 Cellulitis of left upper limb (principal); R78.81 Bacteremia; F10.10 Alcohol abuse, uncomplicated; F17.210 Nicotine dependence, cigarettes, uncomplicated; K02.9 Dental caries, unspecified; F19.10 Other psychoactive substance abuse, uncomplicated; I47.9 Paroxysmal tachycardia, unspecified; B95.0 Streptococcus, group A, as the cause of diseases classified elsewhere; J20.9 Acute bronchitis, unspecified
CPT/HCPCS: 36415; 80048; 80053; 80307; 84145; 85027; 85652; 87040; 87077; 87637; 96361; 96365; 96375; 99285; J1650; 71045; 73201; 81003; 83605; 83735; 85025; 86140; 93306; 94667; 99222; 99233; 99239; J0131; J1885; J2543; J3490

== ENCOUNTER 2023-02-18 16:24 | Emergency (ER) | payer MEDICAID, SELFPAY ==
[2023-02-18] VITALS (10 sets, daily range): BP systolic 110–138; BP diastolic 77–98; PULSE 63–81; RESP 13–20; TEMP 36.8; O2SAT 76–100
--- NOTE | 2023-02-18 16:37 | ED.GENADUL_ITS ---
Discharge Plan Disposition Patient Disposition: Home Condition: Improving Discharge Details Chief Complaint: OD/Poison Clinical Impression: Opiate overdose ED Provider: Jose Martins Home Meds and New Rx's Prescriptions: No Action ibuprofen 800 MG tablet 800 mg PO PRN guaifenesin [Mucus Relief ER] 600 mg Tablet Extended Release 12hr 600 mg PO BID PRN PRN (Reason: cough) Qty: 30 0RF multivitamin [Multiple Vitamins] Tablet 1 tab PO QAM Qty: 30 0RF nicotine 21 mg/24 hr Patch 24 Hour 21 mg transdermal DAILY PRN PRNQty: 28 0RF naloxone 4 mg/actuation [place],Non-Aerosol 4 mg NS PRN PRN (Reason: opioid overdose) Qty: 2 0RF thiamine mononitrate (vit B1) [Vitamin B-1 (mononitrate)] 100 mg Tablet 100 mg PO QAM Qty: 30 0RF cefpodoxime 200 mg tablet 200 mg PO BID Qty: 20 0RF Rx Instructions: must administer with a meal/food Discharge Instructions Instructions: Adult Overdose (ED) Medical Decision Making 37-year-old male history of polysubstance abuse, witnessed opioid overdose, endorses smoking opiate, presents after Narcan and sternal rub administered in the field with great effect, tolerating secretions hemodynamically stable oxygenating normally without supplemental oxygen, no signs of trauma, patient sleepy however arousable to voice, have placed on monitor will keep off supplemental oxygen to assess for episodes of apnea, Narcan at the bedside and airway equipment at the bedside if needed. Respiratory team has been alerted. Will obtain fingerstick blood glucose, close reassessment of mental status. If patient requires further Narcan will place IV line draw basic labs and consider Narcan drip. 17: 05 patient resting comfortably arousable to voice alert oriented now ambulatory without assistance. 17: 46 patient resting comfortably no acute distress. Easily arousable alert oriented. Saturating 99% on room air. HPI General Date/Time Provider Initiated Documentation: 02/18/23 16:27 . HPI Narrative: 37-year-old male history of polysubstance abuse presents brought in after witnessed opioid overdose, bystander administered nasal Narcan and sternal rub with great effect. Patient maintaining airway tolerating secretions. Denies trauma. Endorses smoking opioid. Related Data Home Medications Medication Instructions Recorded Confirmed ibuprofen 800 mg tablet 800 mg PO PRN 08/27/13 01/19/23 cefpodoxime 200 mg tablet 200 mg PO BID #20 tabs 01/02/23 01/19/23 guaifenesin 600 mg tablet, 600 mg PO BID PRN PRN cough #30 01/02/23 01/19/23 extended release 12 hr (Mucus tabs Relief ER) multivitamin (Multiple Vitamins 1 tab PO QAM #30 tabs 01/02/23 01/19/23 tablet) naloxone 4 mg/actuation nasal spray 4 mg NS PRN PRN opioid overdose #2 01/02/23 01/19/23 ea nicotine 21 mg/24 hr daily 21 mg transdermal DAILY PRN PRN 01/02/23 01/19/23 transdermal patch #28 ea thiamine mononitrate (vit B1) 100 100 mg PO QAM #30 tabs 01/02/23 01/19/23 mg tablet (Vitamin B-1 (mononitrate)) Previous Rx's Medication Instructions Recorded cefpodoxime 200 mg tablet 200 mg PO BID #20 tabs 01/02/23 guaifenesin 600 mg tablet, 600 mg PO BID PRN PRN cough #30 01/02/23 extended release 12 hr (Mucus tabs Relief ER) multivitamin (Multiple Vitamins 1 tab PO QAM #30 tabs 01/02/23 tablet) naloxone 4 mg/actuation nasal spray 4 mg NS PRN PRN opioid overdose #2 01/02/23 ea nicotine 21 mg/24 hr daily 21 mg transdermal DAILY PRN PRN 01/02/23 transdermal patch #28 ea thiamine mononitrate (vit B1) 100 100 mg PO QAM #30 tabs 01/02/23 mg tablet (Vitamin B-1 (mononitrate)) Allergies Allergy/AdvReac Type Severity Reaction Status Date / Time No Known Allergies Allergy Unverified 12/31/22 02:10 General Stated Complaint: OD/Poison MANSI: 2 Review of Systems Narrative: Review of Systems Constitutional: Overdose Eyes: negative ENT: negative Cardiovascular: negative Respiratory: negative Gastrointestinal: negative : negative Musculoskeletal: negative Skin: negative Neurologic: negative Psych: negative PFSH All Active Problems (Updated 02/18/23 @ 17:47 by Jose Martins MD) Opiate overdose (Acute) No-show for appointment (Acute) Acute bronchitis (Acute) Streptococcal bacteremia (Acute) Gram-positive bacteremia (Acute) Paroxysmal tachycardia (Acute) Leucocytosis (Acute) Polysubstance abuse (Acute) Cellulitis of left hand (Acute) SIRS (systemic inflammatory response syndrome) (Acute) Alcohol abuse, daily use (Chronic) Tobacco dependence (Chronic) Cellulitis (Acute) Social History Smoking/Tobacco Use Status: Current every day Tobacco Type: cigarettes Smoking risk assessment performed?: Yes Alcohol Intake: current Alcohol Intake frequency: 3 or more drinks per day Alcohol type: beer Drug use: Never Substance use type: does not use Housing: house Do you feel safe at home: Yes Do you feel safe in your relationship?: Yes Exam Narrative Exam Narrative: Physical Examination General: Sleepy but arousable to voice HEENT: normocephalic, atraumatic; PERRL, EOM intact, conjunctiva normal; no nasal discharge; moist mucous membranes, oral and pharyngeal mucosa normal, tolerating secretions Neck: supple, trachea midline; full ROM Chest: normal to inspection Respiratory: normal respiratory effort, speaking in full sentences, clear to auscultation, no wheezing, rales or rhonchi Cardiac: regular rate, regular rhythm, S1S2 intact, no murmurs rubs or gallops GI: abdomen soft, non-tender, non-distended; no palpable mass or hepatosplenomegaly Skin: Abrasion to sternum consistent with sternal rub Neuro: AAOx3, normal speech, moving all extremities; arousable to voice Psych: Appropriate mood and affect Course Vital Signs Vital signs: Vital Signs Temperature 36.8 C 02/18/23 16:26 Pulse 80 02/18/23 16:26 Respiratory Rate 20 02/18/23 16:26 Blood Pressure 138/98 H 02/18/23 16:26 Pulse Oximetry 99 02/18/23 16:26 Temperature 36.8 C 02/18/23 16:26 Temperature Source Temporal Artery Scan 02/18/23 16:26 Pulse 80 02/18/23 16:26 Respiratory Rate 20 02/18/23 16:26 Respiratory Effort Normal 02/18/23 16:34 Respiratory Depth Normal 02/18/23 16:34 Respiratory Pattern Normal 02/18/23 16:34 Blood Pressure 138/98 H 02/18/23 16:26 Blood Pressure Position Supine 02/18/23 16:26 Pulse Oximetry 99 02/18/23 16:26 Oxygen Delivery Method Room Air 02/18/23 16:26 Oxygen Flow Rate 0 02/18/23 16:26
== END 2023-02-18 18:38 | disposition home or self-care (01) ==
LOC: ER 18:30
PROVIDERS: Emergency Provider Emergency Medicine
DX: T40.2X1A Poisoning by other opioids, accidental (unintentional), initial encounter (principal); F19.10 Other psychoactive substance abuse, uncomplicated; F17.210 Nicotine dependence, cigarettes, uncomplicated
CPT/HCPCS: 82962; 99283; 99282

== ENCOUNTER 2023-06-14 15:33 | Emergency (ER) | payer MEDICAID, SELFPAY ==
[2023-06-14] VITALS (8 sets, daily range): BP systolic 109–124; BP diastolic 64–83; PULSE 52–85; RESP 17; TEMP 36.6; O2SAT 93–99
--- NOTE | 2023-06-14 15:45 | DI.RAD_ITS ---
Exam(s) XR TIB/FIB RT EXAM: XR TIB/FIB RT CLINICAL HISTORY: pain and swelling right leg, lesion laterally, red. TECHNIQUE: 2D digital imaging was performed. COMPARISON: No exams were available for comparison FINDINGS: 3 views No evidence of fracture or dislocation. Tibial plateau intact. The medial malleolus is not included in the field of view on the frontal view and if clinically indicated dedicated ankle images can be p erformed. No osseous lesions. IMPRESSION: As above. DATA REPOSITORY: RADIATION DOSE DELIVERED:
--- NOTE | 2023-06-14 16:13 | W.ED.GENAD ---
HPI General Date/Time Provider Initiated Documentation: 06/14/23 15:43. HPI Narrative: This 38-year-old male with history of polysubstance abuse, surgeries, bacteremia, alcohol abuse presents with report of cellulitis to bilateral hands right lower extremity. Denies any history of IV drug abuse, smokes crack cocaine intermittently. Does consume alcohol denies daily drinking per patient. Denies any chest pain or shortness of breath. Denies any fever or chills. Denies any significant pain complaints. States symptoms started approximately 4 to 5 days prior to arrival. Denies any recent antibiotic use. Related Data Home Medications Medication Instructions Recorded Confirmed ibuprofen 800 mg tablet 800 mg PO PRN 08/27/13 01/19/23 guaifenesin 600 mg tablet, 600 mg PO BID PRN PRN cough #30 01/02/23 01/19/23 extended release 12 hr (Mucus tabs Relief ER) multivitamin (Multiple Vitamins 1 tab PO QAM #30 tabs 01/02/23 01/19/23 tablet) naloxone 4 mg/actuation nasal spray 4 mg NS PRN PRN opioid overdose #2 01/02/23 01/19/23 ea nicotine 21 mg/24 hr daily 21 mg transdermal DAILY PRN PRN 01/02/23 01/19/23 transdermal patch #28 ea thiamine mononitrate (vit B1) 100 100 mg PO QAM #30 tabs 01/02/23 01/19/23 mg tablet (Vitamin B-1 (mononitrate)) clindamycin HCl 150 mg capsule 450 mg (3 x 150 mg) PO TID #81 caps 06/14/23 Previous Rx's Medication Instructions Recorded guaifenesin 600 mg tablet, 600 mg PO BID PRN PRN cough #30 01/02/23 extended release 12 hr (Mucus tabs Relief ER) multivitamin (Multiple Vitamins 1 tab PO QAM #30 tabs 01/02/23 tablet) naloxone 4 mg/actuation nasal spray 4 mg NS PRN PRN opioid overdose #2 01/02/23 ea nicotine 21 mg/24 hr daily 21 mg transdermal DAILY PRN PRN 01/02/23 transdermal patch #28 ea thiamine mononitrate (vit B1) 100 100 mg PO QAM #30 tabs 01/02/23 mg tablet (Vitamin B-1 (mononitrate)) clindamycin HCl 150 mg capsule 450 mg (3 x 150 mg) PO TID #81 caps 06/14/23 Allergies Allergy/AdvReac Type Severity Reaction Status Date / Time No Known Allergies Allergy Unverified 12/31/22 02:10 General Stated Complaint: Cellulitis MANSI: 3 Course Vital Signs Vital signs: Vital Signs Temperature 36.6 C 06/14/23 15:39 Pulse 85 06/14/23 15:39 Respiratory Rate 17 06/14/23 15:39 Blood Pressure 124/83 06/14/23 15:39 Pulse Oximetry 96 06/14/23 15:39 Temperature 36.6 C 06/14/23 15:39 Temperature Source Oral 06/14/23 15:39 Pulse 85 06/14/23 15:39 Respiratory Rate 17 06/14/23 15:39 Blood Pressure 124/83 06/14/23 15:39 Blood Pressure Position Sitting 06/14/23 15:39 Pulse Oximetry 96 06/14/23 15:39 Oxygen Delivery Method Room Air 06/14/23 15:39 Oxygen Flow Rate 0 06/14/23 15:39 Medical Decision Making 38-year-old male, alert and oriented presenting with cellulitis to bilateral hands and right lower extremity, history of crack cocaine smoking but denies any history of injection of illicit substances States has had recurrent cellulitis in the past, denies fever or chills Alert and oriented on assessment, extensive cellulitis in right lower extremity, approximately 16 inch region of redness, not circumferential extending down to patient's foot and up to the mid calf, no fluctuance or evidence of abscess, approximately a dime size ulceration which I suspect is the source Neurovascularly intact, no crepitus, x-ray was ordered to look for subcutaneous gas and there was no evidence of that on x-ray nor foreign body Right upper extremity with approximately 3 inch area of cellulitis surrounding an ulceration, no obvious abscess, wound culture sent from right hand wound, no drainable abscess or lesions on right lower extremity As patient has not had outpatient antibiotics will initiate clindamycin for MRSA coverage 900 mg of clindamycin initiated, no leukocytosis, does not meet sepsis criteria, given low threshold to return with new or worsening complaints but at this time patient does not exhibit signs of systemic illness and I think is competent to take antibiotics in the outpatient setting Recheck in 48 hours recommending Quality:SDOH Health Related Social Needs: No Data to Display PFSH All Active Problems (Updated 06/14/23 @ 17:25 by NO Griffiths) Cellulitis of hand, right (Acute) Cellulitis of right lower leg (Acute) No-show for appointment (Acute) Acute bronchitis (Acute) Streptococcal bacteremia (Acute) Gram-positive bacteremia (Acute) Paroxysmal tachycardia (Acute) Leucocytosis (Acute) Polysubstance abuse (Acute) Cellulitis of left hand (Acute) SIRS (systemic inflammatory response syndrome) (Acute) Alcohol abuse, daily use (Chronic) Tobacco dependence (Chronic) Cellulitis (Acute) Social History Smoking/Tobacco Use Status: Current every day Tobacco Type: cigarettes Smoking risk assessment performed?: Yes Alcohol Intake: current Alcohol Intake frequency: 3 or more drinks per day Alcohol type: beer Drug use: Daily Substance use type: IV drugs Housing: house Do you feel safe at home: Yes Do you feel safe in your relationship?: Yes Discharge Plan Disposition Patient Disposition: Home Condition: Stable Discharge Details Clinical Impression: Cellulitis of right lower leg, Cellulitis of hand, right Primary Care Provider: Unknown,Unknown ED Provider: Agnieszka Hurtado Home Meds and New Rx's Prescriptions: New clindamycin HCl 150 mg capsule 450 mg PO TID Qty: 81 0RF Continued ibuprofen 800 MG tablet 800 mg PO PRN guaifenesin [Mucus Relief ER] 600 mg Tablet Extended Release 12hr 600 mg PO BID PRN PRN (Reason: cough) Qty: 30 0RF multivitamin [Multiple Vitamins] Tablet 1 tab PO QAM Qty: 30 0RF nicotine 21 mg/24 hr Patch 24 Hour 21 mg transdermal DAILY PRN PRNQty: 28 0RF naloxone 4 mg/actuation [place],Non-Aerosol 4 mg NS PRN PRN (Reason: opioid overdose) Qty: 2 0RF thiamine mononitrate (vit B1) [Vitamin B-1 (mononitrate)] 100 mg Tablet 100 mg PO QAM Qty: 30 0RF Discontinued cefpodoxime 200 mg tablet 200 mg PO BID Qty: 20 0RF Rx Instructions: must administer with a meal/food Discharge Instructions Instructions: Cellulitis (ED) Additional Instructions: Take the antibiotic as prescribed Yogurt daily while on antibiotic Motrin and Tylenol as needed for pain Please be reassessed in 48 hours and should you have fever, chills, or worsening symptoms, please return for reassessment Elevate your leg above your heart is much as you are able to, the more urine in a dependent position for longer your wound will take to heal, Discharge Data Discharge Date/Time-TO BE ENTERED AT DEPARTURE: 06/14/23 18:18
[2023-06-14 16:39] LABS: Abs Immature Grans 0.07 10^3/uL (0.0-0.06); Absolute Basophil Count 0.05 10^3/uL (0.0-0.2); Absolute Eosinophil Count 0.27 10^3/uL (0.0-0.7); Absolute Lymphocyte Count 1.61 10^3/uL (1.2-3.4); Basophils % 0.5; Eosinophils % 2.5; HCT 38.4 % (40.0-50.0); Immature Grans % 0.7; Lymphocytes % 15.2; MCH 29.5 pg (27.0-33.0); MCHC 33.9 % (32.0-36.0); MCV 87 fL (80-95); MPV 9.4 fL (8.0-11.0); Monocytes % 8.5; Neutrophils % 72.6; Platelet Count 400 10^3/uL (130-400); RDW 12.6 % (11.8-14.1); RDW-SD 40.1 fL
[2023-06-14 16:45] LABS: ESR 34 mm/hr (0-15)
[2023-06-14] MEDS: Normal Saline Flush 10 ML SYR IVP (16:46)
[2023-06-14] MEDS: CLINDAMYCIN 900 MG/50 ML BAG 50 MG IVPB (16:55)
[2023-06-14 16:58] LABS: C-Reactive Protein 8.51 mg/dL (0.0-0.3)
[2023-06-14 17:02] LABS: ALT 26 U/L (16-63); AST 18 U/L (15-37); Albumin 3.2 g/dL (3.4-5.0); Alkaline Phosphatase 65 U/L (46-116); Anion Gap 9.8 mmol/L (3-11); BUN 8 mg/dL (7-18); Bilirubin, Total 0.4 mg/dL (0.2-1.0); CO2 27.2 mmol/L (21.0-32.0); Calcium 9.5 mg/dL (8.5-10.1); Chloride 106 mmol/L (98-107); Estimated GFR 100.03 (mL/min/1.73m2); Glucose 144 mg/dL (74-106); Potassium 4.1 mmol/L (3.5-5.1); Sodium 143 mmol/L (136-145); Total Protein 6.9 g/dL (6.4-8.2)
--- NOTE | 2023-06-15 15:52 | NUR.NOTE ---
Accessed Pt chart to obtain the antibiotic prescribed to the Pt upon discharge.
== END 2023-06-14 18:18 | disposition home or self-care (01) ==
PROVIDERS: Emergency Provider Physician Assistant
DX: L03.113 Cellulitis of right upper limb (principal); L03.114 Cellulitis of left upper limb; L03.115 Cellulitis of right lower limb; F19.10 Other psychoactive substance abuse, uncomplicated; F17.210 Nicotine dependence, cigarettes, uncomplicated
CPT/HCPCS: 36415; 80053; 85652; 87077; 96374; 99284; 73590; 85025; 86140; 87070; 87186; 87205; 99283; J0737

== ENCOUNTER 2024-01-08 10:35 | Emergency (ER) | payer MEDICAID, SELFPAY ==
[2024-01-08 10:37] VITALS: BP 115/75; PULSE 106; RESP 18; TEMP 37.2; O2SAT 98
--- NOTE | 2024-01-08 10:49 | W.ED.GENAD ---
Discharge Plan Discharge Details Chief Complaint: DrugWithdr/MAT Primary Care Provider: Unknown,Unknown ED Provider: Dameon Byrnes Home Meds and New Rx's Prescriptions: No Action ibuprofen 800 MG tablet 800 mg PO PRN naloxone 4 mg/actuation [place],Non-Aerosol 4 mg NS PRN PRN (Reason: opioid overdose) Qty: 2 0RF Discharge Data Discharge Date/Time-TO BE ENTERED AT DEPARTURE: 01/08/24 12:05 HPI General Date/Time Provider Initiated Documentation: 01/08/24 10:37. HPI Narrative: MDM This is an overall well-appearing mildly tachycardic normothermic 38-year-old male with request for lab draw prior to rehabilitation placement. I counseled the patient on risks of lab work and false positives. He reported that he required labs in order to go to rehab. He had no history of sexually transmitted infection but certainly had risk factors so I ordered GC chlamydia urine probe and HIV testing. 01/08 Labs reviewed and reassuring. Salicylates mildly elevated at 3.7 mg/dL. Patient has no signs of salicylate toxciity and denies overdoses. His urine drug screen was positive for cocaine and THC. He has had no chest pain to suggest sympathomimetic toxicity. TSH normal. CBC & Chem7 reassuring. His rapid HIV was pending. He eloped from the ED yesterday just after his labs had been drawn. HPI This 38-year-old male arrived to the emergency private vehicle broke questing to be dropped to go to observe his doubt. He requests everything I think my sexually. He has never had a sexually transmitted infection.Denies fevers, chills, CP, SOB, nausea, vomiting, ODs, dysuria and frequency. Exam General: Well-appearing in no acute distress speaking in complete sentences. Head: Normocephalic, atraumatic. Eye:Extraocular eye movements intact. No conjunctival injection. No scleral icterus. Ear, nose, mouth, throat: Grossly normal inspection. Normal voice, handling secretions normally. Neck: Trachea midline. Cardiovascular: Well-perfused distal extremities. Respiratory: Nonlabored respiration. Gastrointestinal: Nondistended abdomen. Musculoskeletal: No edema. Moving all 4 extremities spontaneously. Skin: Normal for age and race, grossly normal temperature and turgor. No acute rash. Neurologic: Alert and appropriate, no apparent acute deficits. Psychiatric: Mood and manner are appropriate. Grooming and personal hygiene are appropriate. Related Data Home Medications ?Medication ?Instructions ?Recorded ?Confirmed ibuprofen 800 mg tablet 800 mg PO PRN 08/27/13 01/08/24 naloxone 4 mg/actuation nasal spray 4 mg NS PRN PRN opioid overdose #2 01/02/23 01/08/24 ea Previous Rx's ?Medication ?Instructions ?Recorded naloxone 4 mg/actuation nasal spray 4 mg NS PRN PRN opioid overdose #2 01/02/23 ea Allergies Allergy/AdvReac Type Severity Reaction Status Date / Time No Known Allergies Allergy Unverified 12/31/22 02:10 General Stated Complaint: DrugWithdr/MAT MANSI: 4 Course Vital Signs Vital signs: Vital Signs Temperature 37.2 C 01/08/24 10:37 Pulse 106 H 01/08/24 10:37 Respiratory Rate 18 01/08/24 10:37 Blood Pressure 115/75 01/08/24 10:37 Pulse Oximetry 98 01/08/24 10:37 Temperature 37.2 C 01/08/24 10:37 Pulse 106 H 01/08/24 10:37 Respiratory Rate 18 01/08/24 10:37 Respiratory Effort Normal 01/08/24 10:42 Blood Pressure 115/75 01/08/24 10:37 Pulse Oximetry 98 01/08/24 10:37 Pain Level 0 01/08/24 10:37 Medical Decision Making Quality:SDOH Health Related Social Needs: No Data to Display PFSH All Active Problems (Updated 07/15/23 @ 00:06 by BIANCA HAYDEN) No-show for appointment (Acute) Acute bronchitis (Acute) Streptococcal bacteremia (Acute) Gram-positive bacteremia (Acute) Paroxysmal tachycardia (Acute) Leucocytosis (Acute) Polysubstance abuse (Acute) Cellulitis of left hand (Acute) SIRS (systemic inflammatory response syndrome) (Acute) Alcohol abuse, daily use (Chronic) Tobacco dependence (Chronic) Cellulitis (Acute) Social History Smoking/Tobacco Use Status: Current every day Tobacco Type: cigarettes Smoking risk assessment performed?: Yes Alcohol Intake: current Alcohol Intake frequency: a few times a week Alcohol type: beer Drug use: Current Sobriety Substance use type: IV drugs Details: trying to quit all substances Housing: house Do you feel safe at home: Yes Do you feel safe in your relationship?: Yes PAWSS Have you Been Recently Intoxicated or Drunk Within the Last 30 days?: No Have you Ever Experienced Previous Episodes of Alcohol Withdrawal?: No Have you ever Experienced Withdrawal Seizures?: No Have you ever Experienced Delirium Tremens(DT)s?: No Have you ever undergone Alcohol Rehabilitation Treatment (i.e, inpt ot outpatient treatment programs)?: No Have you ever Experienced Blackouts?: No Have you ever Combined Alcohol with other Downers within the last 90 days?: No Have you ever Combined Alcohol with any other Substance of Abuse during the last 90 days?: No Positive Blood Alcohol level on Presentation? [PCS.BAL]: No Evidence of Increased Autonomic Activity (i.e. HR>120, tremor, sweating, agitation, nausea)?: No Result: 0
[2024-01-08 11:29] LABS: *AMPHETAMINES SCREEN URINE Negative (Negative); *BARBITURATES SCREEN URINE Negative (Negative); *BENZODIAZEPINES SCREEN URINE Negative (Negative); Cannabinoids THC Positive (Negative); Cocaine Screen,Urine Positive (Negative); METHADONE URINE SCREEN Negative (Negative); OPIATES URINE SCREEN Negative (Negative)
[2024-01-08 11:32] LABS: Tricyclic Antidepressants Negative (Negative)
[2024-01-08 12:03] LABS: Abs Immature Grans 0.09 10^3/uL (0.0-0.06); Absolute Basophil Count 0.08 10^3/uL (0.0-0.2); Absolute Eosinophil Count 0.26 10^3/uL (0.0-0.7); Absolute Lymphocyte Count 2.07 10^3/uL (1.2-3.4); Absolute Monocyte Count 0.54 10^3/uL (0.1-0.8); Absolute Neutrophil Count 5.18 10^3/uL (1.2-6.7); Eosinophils % 3.2 %; HGB 15.4 g/dL (13.5-17.5); Immature Grans % 1.1 %; Lymphocytes % 25.2 %; MCH 29.6 pg (27.0-33.0); MCHC 32.8 % (32.0-36.0); MCV 90 fL (80-95); MPV 10.4 fL (8.0-11.0); Monocytes % 6.6 %; Neutrophils % 62.9 %; Platelet Count 321 10^3/uL (130-400); RBC 5.21 10^6/uL (4.36-5.78); RDW 12.6 % (11.8-14.1); RDW-SD 41.3 fL; WBC 8.22 10^3/uL (4.4-10.8)
[2024-01-08 12:27] LABS: Anion Gap 7.2 mmol/L (3-11); BUN 8 mg/dL (7-18); CO2 30.8 mmol/L (21.0-32.0); Calcium 10.1 mg/dL (8.5-10.1); Chloride 107 mmol/L (98-107); Estimated GFR 100.03 (mL/min/1.73m2); Glucose 80 mg/dL (74-106); Potassium 3.7 mmol/L (3.5-5.1); Sodium 145 mmol/L (136-145); TSH (W/Ref FT4) 0.66 uIU/mL (0.36-3.74)
[2024-01-08 12:36] LABS: ETHANOL BLOOD < 3.0 mg/dL (<10)
[2024-01-08 12:41] LABS: Salicylate 3.7 mg/dL (<2.8)
[2024-01-08 12:45] LABS: Acetaminophen < 2 ug/mL (10-30)
--- NOTE | 2024-01-08 16:19 | NUR.NOTE ---
Nursing Note: Pt called and asked that his labs get printed and left at the entrance of the ED. His parents are going to come and pick them up for him. Printed and left with access
[2024-01-09 12:11] LABS: HIV-1/2 Ag & Ab Screen Negative (Negative)
== END 2024-01-08 12:05 | disposition left against medical advice (07) ==
LOC: ER 11:53
PROVIDERS: Emergency Provider Emergency Medicine
DX: F19.230 Other psychoactive substance dependence with withdrawal, uncomplicated (principal); F17.210 Nicotine dependence, cigarettes, uncomplicated
CPT/HCPCS: 80048; 80307; 87389; 87491; 87591; 99283; 80320; 80329; 84443; 85025

== ENCOUNTER 2024-06-17 09:07 | Emergency (ER) | payer MEDICAID, SELFPAY ==
[2024-06-17 09:10] VITALS: BP 123/81; PULSE 82; RESP 16; TEMP 36.8; O2SAT 99
--- NOTE | 2024-06-17 09:10 | ED.GENADUL_ITS ---
Discharge Plan Disposition Patient Disposition: Home Discharge Details Clinical Impression: UV keratitis Primary Care Provider: Unknown,Unknown ED Provider: Hector Moon Home Meds and New Rx's Prescriptions: No Action ibuprofen 800 MG tablet 800 mg PO PRN naloxone 4 mg/actuation [place],Non-Aerosol 4 mg NS PRN PRN (Reason: opioid overdose) Qty: 2 0RF Discharge Instructions Instructions: Photokeratitis (arc eye) Additional Instructions: Please use the provided IV antibiotic 4 times daily for the next 5 days. Please no NSAID use for the next 8 hours but then you may use 800 mg of ibuprofen every 8 hours as needed for continued pain or discomfort. Just purchase [id number] Advil, ibuprofen, Motrin. Return to the emergency department for any new or significant worsening of symptoms otherwise follow-up with primary care provider or eye foster care case manager for further evaluation Referrals: Primary Care Provider [Outside] Discharge Data Discharge Date/Time-TO BE ENTERED AT DEPARTURE: 06/17/24 09:55 HPI General Mode of arrival: ambulatory . Date/Time Provider Initiated Documentation: 06/17/24 09:10 . Limitations to Documentation: no limitations . Information obtained by: patient . History of Present Illness 39 year old M presents to the emergency department with the chief complaint of L eye pain , described as moderate, Patient started experiencing this day(s) (1) and it has been constant. No relieving factors improve symptom(s), No exacerbating factors reported . Patient notes no other symptoms.. Patient did receive the following treatments prior to arrival, none Related Data Home Medications ?Medication ?Instructions ?Recorded ?Confirmed ibuprofen 800 mg tablet 800 mg PO PRN 08/27/13 01/08/24 naloxone 4 mg/actuation nasal spray 4 mg NS PRN PRN opioid overdose #2 01/02/23 01/08/24 ea Previous Rx's ?Medication ?Instructions ?Recorded naloxone 4 mg/actuation nasal spray 4 mg NS PRN PRN opioid overdose #2 01/02/23 ea Allergies Allergy/AdvReac Type Severity Reaction Status Date / Time No Known Allergies Allergy Unverified 06/17/24 09:18 General Stated Complaint: EyeProblem MANSI: 4 Review of Systems All systems reviewed & are unremarkable except as noted in HPI and below Eyes Eyes: Reports as per HPI, Reports blurry vision, Reports irritation, Denies loss of vision, Reports eye pain and Reports photophobia Neurologic Neurologic: Denies loss of vision Exam Const General: cooperative, no acute distress and not ill appearing Orientation: alert, awake and oriented x3 HENMT Mouth: moist mucous membranes Eyes Alignment and Position: alignment normal Periorbital: periorbital findings abnormal left periorbital erythema Conjunctivae: conjunctival abnormality left conjunctival injection diffuse; without discharge Cornea: corneas abnormal on the left (Superficial Punctate ) fluorescein used and fluorescein used Pupils: PERRL EOM: EOM intact bilaterally Resp Effort & Inspection: normal respiratory effort, able to speak in complete sentences and no respiratory distress Skin General skin exam: no rashes or lesions noted Neuro General: patient alert, patient awake, patient oriented x3, moves all extremities and no focal motor deficits Sensory Exam: no sensory deficits noted Medical Decision Making Patient presenting to the emergency department for chief complaint of left eye pain. 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 This morning when he woke up he noted significant left eye pain and continued discomfort. Patient denies any dust or debris during welding, denies all injury or trauma. Physical exam shows left orbital erythema but patient is continually rubbing left orbit due to pain and discomfort so doubt cellulitis. Left eye shows significant diffuse erythema tearing and photophobia with small superficial punctate noted to cornea. Exam otherwise noncontributory. Suspect UV keratitis will give patient dose of ketorolac IM for pain and place patient on erythromycin ointment. Patient encouraged to follow-up with primary care provider or whipper beater if not improving in the next 2 days. After discussion of diagnosis and plan of care patient has no further needs, questions, or concerns and states clear understanding to return to the emergency department for any worsening symptoms. This documentation was generated using [employer] system, please disregard any oddities of phrase or misspellings. Quality:SDOH Health Related Social Needs: No Data to Display PFSH All Active Problems (Updated 06/17/24 @ 09:28 by Hector Moon NP) UV keratitis (Acute) No-show for appointment (Acute) Acute bronchitis (Acute) Streptococcal bacteremia (Acute) Gram-positive bacteremia (Acute) Paroxysmal tachycardia (Acute) Leucocytosis (Acute) Polysubstance abuse (Acute) Cellulitis of left hand (Acute) SIRS (systemic inflammatory response syndrome) (Acute) Alcohol abuse, daily use (Chronic) Tobacco dependence (Chronic) Cellulitis (Acute) Social History Smoking/Tobacco Use Status: Current every day Tobacco Type: cigarettes Smoking risk assessment performed?: Yes Alcohol Intake: current Alcohol Intake frequency: a few times a week Alcohol type: beer Drug use: Current Sobriety Substance use type: IV drugs Details: trying to quit all substances Housing: house Do you feel safe at home: Yes Do you feel safe in your relationship?: Yes
[2024-06-17] MEDS: Tetracaine 0.5% 4 ML BTL (09:17)
[2024-06-17] MEDS: Fluorescein STRIPS 100/BOX 1 MG (09:17)
[2024-06-17] MEDS: Balanced Salt Solution 15 ML BTL (09:18)
[2024-06-17] MEDS: Ketorolac 15 MG/ML VIAL IM (09:39)
[2024-06-17] MEDS: Erythromycin Ophth Oint 3.5 GM TUBE OS (09:39)
[2024-06-17 09:56] VITALS: BP 123/81; PULSE 82; RESP 16; TEMP 36.8; O2SAT 99
--- OUTSIDE RECORDS SUMMARY | 2024-06-17 10:03 | XMS_ITS | Encounter Summary ---
Author Organization [facility] Address [address] [place] [address] Care Team Providers Care Eap Counselor Name Role Phone Unknown, Provider Primary Care Provider Unava ilable Encounter Details Date Type Department Care Team (Late st Contact Info) Description 01/08/2024 Lab Requisition [facility] Pathology & Laboratory Medicine - [address] [address] Outr Resulting Lab, Provider Social History Tobacco Use Types Packs/Day Years Used Date Smoking Tobacco: Never Assessed Sex and Gender Information Value Date Recorded Sex Assigned at Not on file Legal Sex Male 18:29 EST Gender Identity Not on file Sexual Orientation Not on file documented as of this encounter Plan of Treatment Not on file documented as of this encounter Procedures Procedure Name Priority Date/Time Associated Diagnosis Comments HIV 1/2 ANTIGEN AND ANTIBODY, 4TH GENERATION Routine 01/08/2024 11:51 EDT documented in this encounter Results * HIV 1/2 ANTIGEN AND ANTIBODY, 4TH GENERATION (01/08/2024 11:51 EDT) HIV 1 and 2 Antibody/p24 Antigen, 4th Generation Negative Negative 01/09/2024 12:06 EDT [facility] Comment:If acute HIV-1 infec tion is suspected in a high risk patient, submit plasma specimen for HIV-1 RNA quantitation test. Blood VENOUS BLOOD / Unknown 01/08/2024 11:51 EDT 01/08/2024 21:39 EDT Narrative [facility] - 01/09/2024 12:06 EDT Fourth Generation assay performed on the Siemens JumpStartaur XPT. us Provider Outr Resulting Lab IMMUNOLOGY AND SEROL OGY ORDERABLES Final Result [facility] [address] [place] [address] documented in this encounter Visit Diagnoses Not on filedocumented in this encounter Care Teams Eap Counselor Relationship Specialty Start Date End Date Unknown, Provider, PCP - General 03/24/15 documented as of this encounter
--- OUTSIDE RECORDS SUMMARY | 2024-06-17 10:03 | XMS_ITS | Encounter Summary ---
Author Organization [facility] Address [address] [place] [address] Care Team Providers Care Stonemason Supervisor Name Role Phone Unavailable Primary Care Provider Unavailabl e Encounter Details Date Type Department Care Team (Late st Contact Info) Description 09/06/2001 Results Only [facility] [address] [place] [address] Naveed Herrera MD [address] [place] [id number] Social History Tobacco Use Types Packs/Day Years [...] Procedure Name Priority Date/Time Associated Diagnosis Comments SURGICAL PATHOLOGY Routine 09/06/2001 0:00 EDT documented in this encounter Results * SURGICAL PATHOLOGY (09/06/2001 0:00 EDT) Pathology Report: SURGICAL PATHOLOGY REPORT Reports generated via electronic interface contain original data; however they are lacking the format of the original report. Caution should be taken when reading/interpreti ng unformatted reports. Name: ? RIA KIMBERLI ? Accession #: ? [id number] ? : ? 1985 (Age: 16) ??M ? Collect Date: ? 09/06/2001 ? Location: ? [facility] ? Receive Date: ? 09/07/2001 ? Provider: NAVEED HERRERA MD Copy to: JOSE ELIAS RODRIGUEZ MD ? Final Pathologic Diagnosis: ? Skin of knee, right anterolateral, excision: - Follicular cyst, infundibular type. Microscopic Description: ? Sections consist of several irregular fragments of fibrofatty tissue. Within the fibrous tissue, there is an open ended cyst lined by stratified squamous epithelium. ??The epithelium matures through a granular layer and the cyst is filled by laminated orthokeratin. ??The surrounding tissues show fibrosis and a focal foreign body giant cell reaction. ??(Dr. Brown)/[facility] Document reviewed and electronically signed by: Leela Brown MD Report ??Date: 09/08/2001 17:15 By the signature above, the attending physician certifies that he/she has personally conducted a gross and/or microscopic examination of the described specimens and rendered or confirmed the above diagnosis. Specimen(s) Received: ? Cyst right knee, anterolateral subq tissues Clinical History: ? sebaceous cyst vs epidermoid inclusion cyst Gross Description: ? Received in formalin labelled Ria and cyst R knee is an excisional unoriented biopsy which measures 0.7 x 0.5 cm and is excised to maximum depth of 1.3 cm. ??The dermal component features a carroll-white, glistening cystic structure which has been opened to reveal carroll-white, soft contents. ??The resection margin is black inked. ??The specimen is serially sectioned and submitted as follows: BLOCK SAGASTUME A1 ?Distal tips, reverse en face A2 ?Central sections (Dr. Wang)/[facility] End of Report [facility] 09/06/2001 09/07/2001 15: 16 EDT us Naveed Herrera MD PATHOLOGY ORDERABLES Final Result Performing Organization Address City/State/[facility] Co de Phone Number [place] [phone] documented in this encounter Visit Diagnoses Not on filedocumented in this encounter
--- OUTSIDE RECORDS SUMMARY | 2024-06-17 10:03 | XMS_ITS | Clinical Summary ---
Author Organization [facility] Address [address] [place] [id number] Care Team Providers Care Button Riveter Name Role Phone Unknown, Provider MD Primary Care Provider Unava ilable Social History Tobacco Use Types Packs/Day Years Used Date Smoking Tobacco: Never Assessed Sex and Gender Information Value Date Recorded Sex Assigned at Not on file Legal Sex Male 18:29 EST Gender Identity Not on file Sexual Orientation Not on file Plan of Treatment Health Maintenance Due Date Last Done Comments Hepatitis C Screen 1985 Hepatitis B Vaccine (1 of 3 - 19+ 3-dose series) 02/25 COVID-19 Vaccine ( season) 2024 Care Teams Button Riveter Relationship Specialty Start Date End Date Unknown, Provider, PCP - General 03/24/15
--- OUTSIDE RECORDS SUMMARY | 2024-06-17 10:03 | XMS_ITS | Referral Summary ---
Author Organization [facility] Address [address] [place] [address] Care Team Providers Care Newspaper Illustrator Name Role Phone Unknown, Provider Primary Care Provider Unava ilable Social History Tobacco Use Types Packs/Day Years Used Date Smoking Tobacco: Never Assessed Sex and Gender Information Value Date Recorded Sex Assigned at Not on file Legal Sex Male 18:29 EST Gender Identity Not on file Sexual Orientation Not on file Plan of Treatment Not on file Care Teams Newspaper Illustrator Relationship Specialty Start Date End Date Unknown, Provider, PCP - General 03/24/15
== END 2024-06-17 09:55 | disposition home or self-care (01) ==
LOC: ER 10:02
PROVIDERS: Emergency Provider Nurse Practitioner Family
DX: H16.132 Photokeratitis, left eye (principal)
CPT/HCPCS: 96372; 99284; J1885